=== PATIENT | female | born 1950 | race Caucasian/White ===

== ENCOUNTER 2020-11-09 15:02 | Inpatient (IN) ==
--- NOTE | 2020-11-09 15:44 | Emergency Department Note ---
History of Present Illness General Chief complaint: Illness Stated complaint: UNABLE TO SWOLLOW PILLS Time Seen by Provider: 11/09/20 15:19 Source: family Mode of arrival: wheelchair Limitations: altered mental status History of Present Illness Provider complaint: concern for poor intake and aspiration This is a 70-year-old female who lives with family brought in by them due to multiple concerns. They state patient has had a significant decline over the last several months. Now will no longer communicate or even look towards family. Patient having increased difficulty swallowing and did have an outpatient swallow study done by ENT. They have referred her for a follow-up study this coming week as well as made a referral to neurology for possible evaluation of Parkinson's. Family states over the last week and worse in the last 3 days it sounds as though she has increased phlegm in the back of her thro at that she can either not expectorate or swallow. She is having difficulty swallowing, holding onto pills in her mouth and then spitting them out later, and seems to occasionally gag trying to take both medication and food. Patient has had markedly decreased oral intake in the last 3 days, has now had decreased urine out and constipation for 5 days. [id number] states patient does not appear to be in any pain, has not felt warm or appeared flushed as though she had a fever. No other recent change in medications. Pt seen during a time of high acuity and national emergency pandemic while wearing PPE. Home Medications Medication Instructions Recorded Confirmed Type Lactobacillus 40-Bifidobact 1 cap PO DAILYBB 11/09/20 11/09/20 History 3-S.thermophilus 100 billion cell capsule (Probiotic) atorvastatin 10 mg tablet (Lipitor) 10 mg PO HS 11/09/20 11/09/20 History clopidogrel 75 mg tablet (Plavix) 75 mg PO QAM 11/09/20 11/09/20 History donepezil 5 mg tablet (Aricept) 10 mg PO QAM 11/09/20 11/09/20 History duloxetine 20 mg capsule,delayed 20 mg PO HS 11/09/20 11/09/20 History release (Cymbalta) insulin glargine 100 unit/mL (3 13 unit SUBCUT 11/09/20 11/09/20 History mL) subcutaneous pen (Lantus Solostar U-100 Insulin) insulin lispro 100 unit/mL 0 unit SUBCUT 11/09/20 11/09/20 History subcutaneous pen (Humalog KwikPen (U-100) Insulin) levothyroxine 50 mcg tablet 50 mcg PO DAILYBB 11/09/20 11/09/20 History (Synthroid) lisinopril 5 mg tablet (Zestril) 5 mg PO QAM 11/09/20 11/09/20 History metformin 1,000 mg tablet 1,000 mg PO BID 11/09/20 11/09/20 History metoprolol tartrate 50 mg tablet 50 mg PO BID 11/09/20 11/09/20 History (Lopressor) apotlupcxfju-eejuanxl-jftzmn 1 tab PO QAM 11/09/20 11/09/20 History tablet (Multivitamin 50 Plus) nystatin 100,000 unit/gram topical 1 applic TOPICAL DAILY PRN 11/09/20 11/09/20 History powder (Nystop) pantoprazole 40 mg tablet,delayed 40 mg PO DAILYBB 11/09/20 11/09/20 History release (Protonix) warfarin 4 mg tablet (Jantoven) 4 mg PO 4XWK 11/09/20 11/09/20 History warfarin 5 mg tablet (Jantoven) 2.5 mg PO 3XWK 11/09/20 11/09/20 History Allergies Allergy/AdvReac Type Severity Reaction Status Date / Time No Known Drug Allergies Allergy Verified 11/09/20 15:48 Past Med/Surg History Medical History (Updated 11/11/20 @ 23:03 by Emily Ramos DO) Dementia Depression Diabetes GERD (gastroesophageal reflux disease) Hyperlipidemia Hypertension Hypothyroid Peripheral vascular disease VTE (venous thromboembolism) Surgical History History of hip surgery Family History Other Unknown family medical history Social History (Updated 11/09/20 @ 20:32 by Brisa Kemp DO) Smoking Status: Unknown if ever smoked Tobacco Type: Cigarettes packs per day: 2; Years Smoked: 30; Hx Alcohol Use: No Hx Substance Use: No Communication Ability: Unable Current Living Situation: Family current occupational status: disabled Feels Safe at Home: Yes Assistive Devices: None Review of Systems See HPI for pertinent positives & negatives. Unobtainable due to cognitive status Physical Exam Vital Signs Vital Signs - 24 hr 11/09/20 15:06 11/09/20 17:53 11/09/20 21:14 Temperature 36.8 C Temperature Source Temporal Artery Scan Pulse Rate 92 H Pulse Rate [Radial] 79 76 Pulse Rhythm Regular Pulse Strength Normal Respiratory Rate 18 18 18 Respiratory Effort / Characteristics Non-Labored Spontaneous Respiratory Depth Normal Blood Pressure 147/83 H Blood Pressure [Right Arm] 121/87 144/101 H Blood Pressure Mean 104 Blood Pressure Mean [Right Arm] 98 115 Pulse Oximetry 98 96 95 Oxygen Delivery Method Room Air Room Air Room Air Sepsis Recent Fever Within 48 Hours No Sepsis New/Unexplained Change in Mental Status No Sepsis Action Taken by Nursing No Action Required GENERAL: Eyes open, looking down, unwell appearing, well nourished, no distress, non-toxic EYE EXAM: normal conjunctiva, PERRL and EOM's grossly intact OROPHARYNX: no exudate, no erythema, lips, buccal mucosa, and tongue normal and mucous membranes are moist NECK: supple, no nuchal rigidity, no adenopathy, non-tender LUNGS: Clear to auscultation. Normal chest wall mechanics, no w/r/r, slightly decreased at right base compared to left HEART: no murmurs, S1 normal and S2 normal ABDOMEN: abdomen soft, non-tender, normo-active bowel sounds, no masses, no rebound or guarding. BACK: Back is symmetrical on inspection and there is no deformity, no midline tenderness, no CVA tenderness. SKIN: no rashes and no bruising UPPER EXTREMITIES: upper extremities are grossly normal. FROM, nml pulses b/l. LOWER EXTREMITIES: No pitting edema. FROM, nml pulses b/l. NEURO EXAM: Patient nonverbal, would not follow commands, slight resting tremor noted in the upper extremities Course Course 1830: Family updated at bedside. They verbalized understanding of results. Administered Medications Cyanocobalamin (Cyanocobalamin 1000 Mcg/Ml Vial) 1,000 mcg IM DAILY FREEMAN Stop: 11/13/20 09:01 Last Admin: 11/11/20 21:42 Dose: 1,000 mcg Documented by: [id number] Donepezil HCl (Donepezil Hcl 10 Mg Tab) 10 mg PO QAM FREEMAN Stop: 12/10/20 08:59 Last Admin: 11/11/20 08:16 Dose: Not Given Documented by: [id number] Admin: 11/10/20 09:01 Dose: Not Given Documented by: [id number] Ceftriaxone Sodium 1,000 mg/ (Dextrose) 50 mls @ 100 mls/hr IV Q24H FREEMAN; Protocol Stop: 11/15/20 18:59 Last Infusion: 11/11/20 19:02 Dose: 0 mls/hr Documented by: [id number] Admin: 11/11/20 17:48 Dose: 100 mls/hr Documented by: [id number] Infusion: 11/10/20 19:00 Dose: 0 mls/hr Documented by: [id number] Admin: 11/10/20 18:01 Dose: 100 mls/hr Documented by: [id number] Famotidine 20 mg/ Syringe 5 mls @ 2.5 mls/min IV DAILY FREEMAN Stop: 12/10/20 08:59 Last Admin: 11/11/20 08:16 Dose: 2.5 mls/min Documented by: [id number] Admin: 11/10/20 09:01 Dose: 2.5 mls/min Documented by: [id number] Lactated Ringer's (Lr) 1,000 mls @ 50 mls/hr IV .Q20H FREEMAN Stop: 12/10/20 14:59 Last Infusion: 11/11/20 11:40 Dose: 50 mls/hr Documented by: [id number] Admin: 11/11/20 05:58 Dose: 70 mls/hr Documented by: [id number] Infusion: 11/11/20 05:58 Dose: 70 mls/hr Documented by: [id number] Admin: 11/10/20 18:01 Dose: 70 mls/hr Documented by: [id number] Insulin Aspart (Insulin Aspart 100 Units/Ml 3 Ml Pen) 0 units SC Q6 FREEMAN Stop: 12/10/20 00:00 Last Admin: 11/11/20 17:35 Dose: Not Given Documented by: [id number] Admin: 11/11/20 13:11 Dose: 3 units Documented by: [id number] Cosigned by: [id number] Admin: 11/11/20 06:16 Dose: 1 units Documented by: [id number] Cosigned by: [id number] Admin: 11/11/20 00:09 Dose: 1 units Documented by: [id number] Cosigned by: [id number] Admin: 11/10/20 18:02 Dose: 2 units Documented by: [id number] Cosigned by: [id number] Admin: 11/10/20 12:44 Dose: 1 units Documented by: [id number] Cosigned by: [id number] Admin: 11/10/20 06:19 Dose: Not Given Documented by: [id number] Cosigned by: [id number] Admin: 11/09/20 23:52 Dose: 3 units Documented by: [id number] Cosigned by: [id number] Insulin Glargine (Insulin Glargine Solostar 100 Units/Ml 3 Ml Pen) 7 units SC HS FREEMAN Stop: 12/09/20 23:14 Last Admin: 11/11/20 21:56 Dose: 7 units Documented by: [id number] Cosigned by: [id number] Admin: 11/10/20 21:28 Dose: 7 units Documented by: [id number] Cosigned by: [id number] Admin: 11/09/20 23:52 Dose: 7 units Documented by: [id number] Cosigned by: [id number] Discontinued Medications Bisacodyl (Bisacodyl 10 Mg Supp) 10 mg FL NOW STA Stop: 11/09/20 20:37 Last Admin: 11/09/20 21:46 Dose: 10 mg Documented by: [id number] Enoxaparin Sodium (Enoxaparin Inj 60 Mg/0.6 Ml Syr) 60 mg SQ NOW STA Stop: 11/10/20 00:00 Last Admin: 11/10/20 00:21 Dose: 60 mg Documented by: [id number] Gadobutrol (Gadobutrol 65ml Vial) 5 ml IV ONCE ONE Stop: 11/11/20 20:56 Last Admin: 11/11/20 20:56 Dose: 5 ml Documented by: [id number] Sodium Chloride (Nss 1000ml) 1,000 mls @ 125 mls/hr IV .Q8H FREEMAN Stop: 12/09/20 15:44 Last Infusion: 11/09/20 23:42 Dose: 0 mls/hr Documented by: [id number] Admin: 11/09/20 16:02 Dose: 125 mls/hr Documented by: [id number] Magnesium Sulfate/Dextrose (Magnesium Sulfate / D5w) 1 gm in 100 mls @ 100 mls/hr IV Q1H FREEMAN Stop: 11/09/20 19:28 Last Infusion: 11/09/20 23:42 Dose: 0 mls/hr Documented by: [id number] Admin: 11/09/20 19:11 Dose: 100 mls/hr Documented by: [id number] Infusion: 11/09/20 18:46 Dose: 100 mls/hr Documented by: [id number] Admin: 11/09/20 17:46 Dose: 100 mls/hr Documented by: [id number] Ceftriaxone Sodium (Rocephin) 1,000 mg in 50 mls @ 100 mls/hr IV NOW STA Stop: 11/09/20 18:38 Last Infusion: 11/09/20 19:11 Dose: 0 mls/hr Documented by: [id number] Admin: 11/09/20 18:40 Dose: 100 mls/hr Documented by: [id number] Magnesium Sulfate/Dextrose (Magnesium Sulfate / D5w) 1 gm in 100 mls @ 50 mls/hr IV Q2H STA Stop: 11/09/20 22:14 Last Infusion: 11/09/20 23:42 Dose: 0 mls/hr Documented by: [id number] Admin: 11/09/20 20:36 Dose: 50 mls/hr Documented by: [id number] Potassium Chloride 20 meq/ (Lactated Ringer's) 1,010 mls @ 100 mls/hr IV .Q10H6M FREEMAN Stop: 11/10/20 09:20 Last Infusion: 11/10/20 10:20 Dose: 0 mls/hr Documented by: [id number] Infusion: 11/10/20 10:20 Dose: 0 mls/hr Documented by: [id number] Admin: 11/09/20 23:55 Dose: 100 mls/hr Documented by: [id number] Magnesium Sulfate/Dextrose (Magnesium Sulfate / D5w) 1 gm in 100 mls @ 50 mls/hr IV Q2H FREEMAN Stop: 11/10/20 17:05 Last Infusion: 11/10/20 18:11 Dose: 0 mls/hr Documented by: [id number] Admin: 11/10/20 15:59 Dose: 50 mls/hr Documented by: [id number] Infusion: 11/10/20 15:40 Dose: 50 mls/hr Documented by: [id number] Admin: 11/10/20 13:40 Dose: 50 mls/hr Documented by: [id number] Infusion: 11/10/20 13:36 Dose: 50 mls/hr Documented by: [id number] Admin: 11/10/20 11:36 Dose: 50 mls/hr Documented by: [id number] Potassium Chloride (K Adriano / Wtr) 10 meq in 100 mls @ 100 mls/hr IV Q1H FREEMAN Stop: 11/10/20 15:05 Last Infusion: 11/10/20 15:59 Dose: 0 mls/hr Documented by: [id number] Admin: 11/10/20 14:49 Dose: 100 mls/hr Documented by: [id number] Infusion: 11/10/20 14:43 Dose: 100 mls/hr Documented by: [id number] Admin: 11/10/20 13:43 Dose: 100 mls/hr Documented by: [id number] Infusion: 11/10/20 13:41 Dose: 100 mls/hr Documented by: [id number] Admin: 11/10/20 12:41 Dose: 100 mls/hr Documented by: [id number] Infusion: 11/10/20 12:36 Dose: 100 mls/hr Documented by: [id number] Admin: 11/10/20 11:36 Dose: 100 mls/hr Documented by: [id number] Magnesium Sulfate/Dextrose (Magnesium Sulfate / D5w) 1 gm in 100 mls @ 50 mls /hr IV Q2H FREEMAN Stop: 11/11/20 15:29 Last Infusion: 11/11/20 15:24 Dose: 0 mls/hr Documented by: [id number] Admin: 11/11/20 13:13 Dose: 50 mls/hr Documented by: [id number] Infusion: 11/11/20 13:13 Dose: 50 mls/hr Documented by: [id number] Admin: 11/11/20 11:40 Dose: 50 mls/hr Documented by: [id number] Potassium Phosphate 21 mmol/ (Sodium Chloride) 507 mls @ 145 mls/hr IV 1130 ONE Stop: 11/11/20 14:59 Last Infusion: 11/11/20 15:25 Dose: 0 mls/hr Documented by: [id number] Admin: 11/11/20 11:47 Dose: 145 mls/hr Documented by: [id number] Iron Sucrose 300 mg/ Sodium (Chloride) 265 mls @ 176.667 mls/hr IV 2000 ONE Stop: 11/11/20 21:29 Last Admin: 11/11/20 21:42 Dose: 176.7 mls/hr Documented by: [id number] Thiamine HCl 200 mg/ Sodium (Chloride) 52 mls @ 208 mls/hr IV ONE ONE Stop: 11/11/20 20:14 Last Infusion: 11/11/20 22:14 Dose: 0 mls/hr Documented by: [id number] Admin: 11/11/20 21:42 Dose: 208 mls/hr Documented by: [id number] Insulin Aspart (Insulin Aspart 100 Units/Ml 3 Ml Pen) 0 units SC ACHS FREEMAN Stop: 12/09/20 23:14 Last Admin: 11/10/20 00:15 Dose: Not Given Documented by: [id number] Cosigned by: [id number] Ioversol (Optiray 320 100ml) 94 ml IV ONCE ONE Stop: 11/09/20 18:14 Last Admin: 11/09/20 18:13 Dose: 1 ml Documented by: [id number] Miscellaneous (Patient's Height And/Or Weight Needed) 1 ea N/A Q30M FREEMAN Stop: 12/09/20 23:14 Last Admin: 11/10/20 00:22 Dose: Not Given Documented by: [id number] Admin: 11/09/20 23:55 Dose: 1 ea Documented by: [id number] Potassium Chloride (Potassium Chloride Crtab 20 Meq Tabcr) 20 meq PO NOW STA Stop: 11/09/20 20:16 Last Admin: 11/09/20 20:40 Dose: Not Given Documented by: [id number] Medical Decision Making Differential Diagnosis Differential diagnoses includes but is not limited to toxic, metabolic, infectious, traumatic, cardiac, neurologic, hematologic, psychiatric and inflammatory etiologies. Medical Records Attestation: I reviewed the patient's medical records. Home Medications Current Medication List: was personally reviewed by me Laboratory Data Attestation: I reviewed the patient's lab results. Result diagrams: 11/11/20 07:40 11/11/20 07:40 Lab Results 11/09/20 11/09/20 11/09/20 Range/Units 15:57 15:57 15:57 WBC 11.06 H (4.8-10.8) K/uL RBC 4.25 (4.2-5.4) M/uL Hgb 11.9 L (12.0-16.0) g/dL Hct 36.7 L (37-47) % MCV 86.4 (80-100) fL MCH 28.0 (25-34) pg MCHC 32.4 (32-36) g/dL RDW Std Deviation 49.9 H (36.4-46.3) fL RDW Coeff of [place] 15.8 H (11.5-14.5) % Plt Count 214 (130-400) K/uL MPV 10.7 H (7.4-10.4) fL Immature Gran % (Auto) 0.3 % Neut % (Auto) 75.7 % Lymph % (Auto) 14.9 % [place] % (Auto) 8.2 % Eos % (Auto) 0.7 % Baso % (Auto) 0.2 % Neut # (Auto) 8.37 H (1.4-6.5) K/uL Lymph # (Auto) 1.65 (1.2-3.4) K/uL [place] # (Auto) 0.91 H (0.11-0.59) K/uL Eos # (Auto) 0.08 (0-0.5) K/uL Baso # (Auto) 0.02 (0-0.2) K/uL Immature Gran # (Auto) 0.03 H (0.00-0.02) K/uL PT 30.1 H (9.0-12.0) Seconds INR 3.3 H (0.9-1.1) Sodium 137 (136-145) mmol/L Potassium 3.2 L (3.5-5.1) mmol/L Chloride 103 (98-107) mmol/L Carbon Dioxide 26 (21-32) mmol/L Anion Gap 8.0 (3-11) BUN 17 (7-18) mg/dl Creatinine 0.94 (0.6-1.2) mg/dl Est Cr Clr Drug Dosing Not Reportable Est GFR ( Amer) 70.2 ml/min Est GFR (Non-Af Amer) 60.6 ml/min BUN/Creatinine Ratio 18.3 (10-20) Glucose 224 H (70-99) mg/dl Calcium 9.5 (8.5-10.1) mg/dl Phosphorus 2.3 L (2.5-4.9) mg/dl Magnesium 0.7 L* (1.8-2.4) mg/dl Total Bilirubin 0.7 (0.2-1) mg/dl AST 14 L (15-37) U/L ALT 11 L (12-78) U/L Alkaline Phosphatase 65 (45-117) U/L Troponin I < 0.015 (0-0.045) ng/ml NT-Pro-B Natriuret Pep 97 (0-900) pg/ml Total Protein 6.7 (6.4-8.2) gm/dl Albumin 3.3 L (3.4-5.0) gm/dl Globulin 3.4 (2.5-4.0) gm/dl Albumin/Globulin Ratio 1.0 (0.9-2) Lipase 111 (73-393) U/L TSH 1.290 (0.300-4.500) uIu/ml Urine Color Urine Appearance (Clear) Urine pH (4.5-7.5) Ur Specific [place] (1.000-1.030) Urine Protein (Negative) Urine Glucose (UA) (Negative) Urine Ketones (Negative) Urine Blood (Negative) Urine Nitrite (Negative) Urine Bilirubin (Negative) Urine Urobilinogen (Negative) Ur Leukocyte Esterase (Negative) Urine WBC (Auto) (0-5) /hpf Urine RBC (Auto) (0-4) /hpf U Hyaline Cast (Auto) (0-5) /lpf U Epithel Cells (Auto) (0-5) /lpf Urine Bacteria (Auto) (Negative) Urine Crystals Other Crystals (None Prsent) Urine Yeast COVID-19 Eval Order SARS-CoV-2 (PCR) (Negative) 11/09/20 11/09/20 11/09/20 Range/Units 16:11 19:17 19:17 WBC (4.8-10.8) K/uL RBC (4.2-5.4) M/uL Hgb (12.0-16.0) g/dL Hct (37-47) % MCV (80-100) fL MCH (25-34) pg MCHC (32-36) g/dL RDW Std Deviation (36.4-46.3) fL RDW Coeff of [place] (11.5-14.5) % Plt Count (130-400) K/uL MPV (7.4-10.4) fL Immature Gran % (Auto) % Neut % (Auto) % Lymph % (Auto) % [place] % (Auto) % Eos % (Auto) % Baso % (Auto) % Neut # (Auto) (1.4-6.5) K/uL Lymph # (Auto) (1.2-3.4) K/uL [place] # (Auto) (0.11-0.59) K/uL Eos # (Auto) (0-0.5) K/uL Baso # (Auto) (0-0.2) K/uL Immature Gran # (Auto) (0.00-0.02) K/uL PT (9.0-12.0) Seconds INR (0.9-1.1) Sodium (136-145) mmol/L Potassium (3.5-5.1) mmol/L Chloride (98-107) mmol/L Carbon Dioxide (21-32) mmol/L Anion Gap (3-11) BUN (7-18) mg/dl Creatinine (0.6-1.2) mg/dl Est Cr Clr Drug Dosing Est GFR ( Amer) ml/min Est GFR (Non-Af Amer) ml/min BUN/Creatinine Ratio (10-20) Glucose (70-99) mg/dl Calcium (8.5-10.1) mg/dl Phosphorus (2.5-4.9) mg/dl Magnesium (1.8-2.4) mg/dl Total Bilirubin (0.2-1) mg/dl AST (15-37) U/L ALT (12-78) U/L Alkaline Phosphatase (45-117) U/L Troponin I (0-0.045) ng/ml NT-Pro-B Natriuret Pep (0-900) pg/ml Total Protein (6.4-8.2) gm/dl Albumin (3.4-5.0) gm/dl Globulin (2.5-4.0) gm/dl Albumin/Globulin Ratio (0.9-2) Lipase (73-393) U/L TSH (0.300-4.500) uIu/ml Urine Color Dark Yellow Urine Appearance Turbid A (Clear) Urine pH 8.5 H (4.5-7.5) Ur Specific [place] 1.021 (1.000-1.030) Urine Protein 1+ H (Negative) Urine Glucose (UA) Negative (Negative) Urine Ketones Trace H (Negative) Urine Blood Negative (Negative) Urine Nitrite Negative (Negative) Urine Bilirubin Negative (Negative) Urine Urobilinogen Negative (Negative) Ur Leukocyte Esterase 2+ H (Negative) Urine WBC (Auto) >30 H (0-5) /hpf Urine RBC (Auto) 0-4 (0-4) /hpf U Hyaline Cast (Auto) 1-5 (0-5) /lpf U Epithel Cells (Auto) >30 H (0-5) /lpf Urine Bacteria (Auto) 4+ H (Negative) Urine Crystals Not Reportable Other Crystals [place]c (None Prsent) Urine Yeast Not Reportable COVID-19 Eval Order Covid19 at [facility] SARS-CoV-2 (PCR) NEGATIVE (Negative) Imaging Data Radiologist's Impression: Head CT 11/09/20 15:38 CT head/brain wo con CLINICAL HISTORY: ams COMPARISON STUDY: No previous studies for comparison. TECHNIQUE: Axial CT of the brain is performed from the vertex to the skull base. IV contrast was not administered for this examination. A dose lowering technique was utilized adhering to the principles of ALARA. CT DOSE: 746.71 mGy.cm FINDINGS: No intra or extra-axial mass lesions are visualized. There is no CT evidence of acute cortical infarction. There is no evidence of midline shift. There is no acute hemorrhage. No acute depressed calvarial fractures are visualized. There are patchy white matter hypodensities likely on a small vessel basis. Atrophic changes of brain parenchyma are seen and associated with ex vacuo dilatation of ventricles. There is no evidence of acute sinusitis IMPRESSION: 1. No acute intracranial hemorrhage, no midline shift or space occupying lesions. 2. Chronic small vessel ischemia. 3. Atrophic changes of brain parenchyma associated with ex vacuo dilatation of ventricles. ACT 112: Negative or not required by law. The above report was generated using voice recognition software. It may contain grammatical, syntax or spelling errors. Electronically signed by: Connie Guaman DO 11/09/2020 4:50 PM KUB X-Ray 11/09/20 15:38 XR KUB/Abdomen 1 view CLINICAL HISTORY: constipation COMPARISON STUDY: No previous studies for comparison. FINDINGS: Nondilated stool and gas filled loops of bowel are seen. Moderate amount of stool is seen within left hemiabdomen. Cholecystectomy clips, degenerative changes of the spine and orthopedic hardware within left hip joint are seen. Also osseous structures are diffusely demineralized. Slightly rotated right femoral head is seen. IMPRESSION: 1. Nonobstructive bowel gas pattern. ACT 112: Negative or not required by law. The above report was generated using voice recognition software. It may contain grammatical, syntax or spelling errors. Electronically signed by: Connie Guaman DO 11/09/2020 5:09 PM Chest X-Ray 11/09/20 15:39 XR chest 1V portable CLINICAL HISTORY: ?aspiration COMPARISON STUDY: No previous studies for comparison. FINDINGS: No pneumothorax. No pleural effusion. No large infiltrates or consolidative lesions are seen. Cardiomediastinal silhouette is within normal limits in size. No significant pulmonary vascular congestion.. Aorta is calcified Osseous structures: Severe degenerative changes of the left shoulder. Mild thoracolumbar scoliosis. IMPRESSION: 1. No acute pulmonary process. ACT 112: Negative or not required by law. The above report was generated using voice recognition software. It may contain grammatical, syntax or spelling errors. Electronically signed by: Connie Guaman DO 11/09/2020 5:10 PM Abdomen/Pelvis CT 11/09/20 18:10 CT abd pelvis IV con only CLINICAL HISTORY: uti, ams COMPARISON STUDY: None. TECHNIQUE: A dose lowering technique was utilized adhering to the principles of ALARA. CT DOSE: 301.14 mGy.cm FINDINGS: Lower chest: Limited evaluation of lung bases shows no evidence of acute a bnormalities.. Liver: The contrast-enhanced liver is normal in size, contour, and attenuation. There is no intrahepatic biliary ductal dilatation. The hepatic veins and portal veins are patent. Gallbladder: Is surgically absent. Spleen: Normal in size and attenuation. Pancreas: Is atrophic. 4.4 x 3.6 cm cyst is seen with adjacent to pancreatic tail (3/115). Diffuse prominence of pancreatic duct is seen. Adrenal glands: Unremarkable. Kidneys: No hydronephrosis or nephrolithiasis is seen. Cortical scarring is seen within left kidney, otherwise there is diffuse homogeneous cortical enhancement. Pelvic viscera: Urinary bladder is fluid-filled. Uterus is surgically absent. Bowel: Bowel loops are nondilated. Duodenal diverticulum is seen. Appendix is not well visualized. Significant amount of stool is seen within lower pelvic region which could represents fecal impaction. Minimal fat stranding surrounding cecum is seen. Peritoneum: There is no intraperitoneal free air or abdominal ascites. Vasculature: Abdominal aorta is nondilated. Heavy concentric calcifications are seen within distal aspect of abdominal aorta. Adenopathy: None Skeletal structures: Osteopenia. Multilevel degenerative changes of the spine. Orthopedic hardware is seen within left hip. IMPRESSION: 1. Fecal impaction. 2. Nondilated loops of bowel. Questionable minimal fat stranding is seen surrounding cecum which might represent inflammatory process/colitis. 3. Atrophic pancreas with large pancreatic cyst. Please correlate this findings with prior history of pancreatic abnormalities. Further GI evaluation and possible MRI of the abdomen on nonemergency basis might be considered. 4. Status post cholecystectomy and hysterectomy. 5. Atherosclerosis. 6. The rest of findings as above ACT 112: Negative or not required by law. The above report was generated using voice recognition software. It may contain grammatical, syntax or spelling errors. Electronically signed by: Connie Guaman DO 11/09/2020 8:19 PM ECG Data Attestation: I personally reviewed and interpreted this ECG as follows: Indication: + altered mental status Rate (beats per minute): 78 Rhythm: + normal sinus ECG Intervals/blocks: + Normal QRS and + Normal QT ECG [place]: + Normal ECG ST segments: + Normal ST segments MDM Narrative This is a 70 yo female brought in by family due to concern for decreased intake, inability to take her medications, decline in her alertness, and concern for dehydration. VS stable. No ectopy or dysrhythmia. Initial cxr without evidence of aspiration. Patient started on gentle IVF rehydration. Cath UA obtained and suggestive of UTI. Patient found to have significant hypomagnes emia in addition. DIscussed all results with family at bedside. Possible that UTI led to dehydration and poor po intake which worsened her electrolyte dysfunction. Pt started on IV antibiotics. Case discussed with the hospitalist. CT a/p added to r/o pyelo or obstructive process given AMS. CT head without acute process to otherwise contribute to cognitive decline. An order was placed for continuous cardiac monitoring. The monitor shows a rate of _96__ with __normal sinus__ rhythm. Impression & Plan AMS (altered mental status), UTI (urinary tract infection), Hypomagnesemia, Declining functional status, Hypokalemia Discharge Plan Visit Data Chief Complaint: Illness Stated Complaint: UNABLE TO SWOLLOW PILLS ED Provider: Pheasant,Emily S. Discharge Problem: AMS (altered mental status), UTI (urinary tract infection), Hypomagnesemia, Declining functional status, Hypokalemia Patient Disposition: Admitted As Inpatient Discharge Instructions Interventions: ED Discharge Assessment Last Done: 11/09/20 22:11 Discharge Problem: AMS (altered mental status) Qualifiers: Altered mental status type: unspecified Qualified Code(s): R41.82 - Altered mental status, unspecified UTI (urinary tract infection) Qualifiers: Urinary tract infection type: acute cystitis Hematuria presence: without hematuria Qualified Code(s): N30.00 - Acute cystitis without hematuria
[2020-11-09] MEDS ORDERED: SODIUM CHLORIDE 0.9% 1000ML 1,000 ML IV SCH (15:45)
[2020-11-09 16:11] LABS: Basophils # (auto) 0.02 K/uL (0-0.2); Basophils % (auto) 0.2 %; Eosinophils # (auto) 0.08 K/uL (0-0.5); Eosinophils % (auto) 0.7 %; Hematocrit (blood only) 36.7 % (37-47); Hemoglobin 11.9 g/dL (12.0-16.0); Immature Granulocytes # (auto) 0.03 K/uL (0.00-0.02); Immature Granulocytes % (auto) 0.3 %; Lymphocytes # (auto) 1.65 K/uL (1.2-3.4); Lymphocytes % (auto) 14.9 %; Mean Corpuscular Hgb Conc 32.4 g/dL (32-36); Mean Corpuscular Volume 86.4 fL (80-100); Mean Platelet Volume 10.7 fL (7.4-10.4); Monocytes # (auto) 0.91 K/uL (0.11-0.59); Monocytes % (auto) 8.2 %; Neutrophils # (auto) 8.37 K/uL (1.4-6.5); Neutrophils % (auto) 75.7 %; Platelet Count 214 K/uL (130-400); RDW Coefficient of Variation 15.8 % (11.5-14.5); RDW Standard Deviation 49.9 fL (36.4-46.3); Red Blood Count 4.25 M/uL (4.2-5.4); White Blood Count 11.06 K/uL (4.8-10.8)
[2020-11-09 16:20] LABS: INR 3.3 (0.9-1.1); Prothrombin Time 30.1 Seconds (9.0-12.0)
[2020-11-09 16:45] LABS: Appearance Urine Turbid (Clear); Bacteria Urine Automated 4+ (Negative); Bilirubin Urine Negative (Negative); Blood Urine Negative (Negative); Color Urine Dark Yellow; Epithelial Cell Urine Auto >30 /lpf (0-5); Glucose Urine UA Negative (Negative); Ketones Urine Trace (Negative); Leukocyte Esterase Urine 2+ (Negative); Nitrite Urine Negative (Negative); Specific Gravity Urine 1.021 (1.000-1.030); Urobilinogen Urine Negative (Negative); WBC Urine Automated >30 /hpf (0-5); pH Urine 8.5 (4.5-7.5)
[2020-11-09 16:47] LABS: Protein Urine 1+ (Negative)
--- NOTE | 2020-11-09 16:51 | CT Scan Report ---
CT head/brain wo con CLINICAL HISTORY: ams COMPARISON STUDY: No previous studies for comparison. TECHNIQUE: Axial CT of the brain is performed from the vertex to the skull base. IV contrast was not administered for this examination. A dose lowering technique was utilized adhering to the principles of ALARA. CT DOSE: 746.71 mGy.cm FINDINGS: No intra or extra-axial mass lesions are visualized. There is no CT evidence of acute cortical infarc tion. There is no evidence of midline shift. There is no acute hemorrhage. No acute depressed calvar ial fractures are visualized. There are patchy white matter hypodensities likely on a small vessel basis. Atrophic changes of brain parenchyma are seen and associated with ex vacuo dilatation of ventricles. There is no evidence of acute sinusitis IMPRESSION: 1. No acute intracranial hemorrhage, no midline shift or space occupying lesions. 2. Chronic small vessel ischemia. 3. Atrophic changes of brain parenchyma associated with ex vacuo dilatation of ventricles. ACT 112: Negative or not required by law. The above report was generated using voice recognition software. It may contain grammatical, syntax o r spelling errors. Electronically signed by: Connie Guaman DO 11/09/2020 4:50 PM
[2020-11-09 16:59] LABS: RBC Urine Automated 0-4 /hpf (0-4)
[2020-11-09 17:04] LABS: Alanine Aminotransferase 11 U/L (12-78); Albumin Level 3.3 gm/dl (3.4-5.0); Alkaline Phosphatase 65 U/L (45-117); Aspartate Aminotransferase 14 U/L (15-37); BUN Creatinine Ratio 18.3 (10-20); Bilirubin,Total 0.7 mg/dl (0.2-1); Blood Urea Nitrogen 17 mg/dl (7-18); Calcium 9.5 mg/dl (8.5-10.1); Carbon Dioxide 26 mmol/L (21-32); Chloride 103 mmol/L (98-107); Est GFR (African American) 70.2 ml/min; Est GFR (Non-African American) 60.6 ml/min; Globulin 3.4 gm/dl (2.5-4.0); Glucose 224 mg/dl (70-99); Lipase 111 U/L (73-393); Magnesium 0.7 mg/dl (1.8-2.4); NT Pro B Type Natriuretic Pept 97 pg/ml (0-900); Potassium 3.2 mmol/L (3.5-5.1); Sodium 137 mmol/L (136-145); Total Protein 6.7 gm/dl (6.4-8.2); Troponin I < 0.015 ng/ml (0-0.045)
--- NOTE | 2020-11-09 17:10 | XRay Report ---
XR KUB/Abdomen 1 view CLINICAL HISTORY: constipation COMPARISON STUDY: No previous studies for comparison. FINDINGS: Nondilated stool and gas filled loops of bowel are seen. Moderate amount of stool is seen within left hemiabdomen. Cholecystectomy clips, degenerative changes of the spine and orthopedic hardware within left hip join t are seen. Also osseous structures are diffusely demineralized. Slightly rotated right femoral head is seen. IMPRESSION: 1. Nonobstructive bowel gas pattern. ACT 112: Negative or not required by law. The above report was generated using voice recognition software. It may contain grammatical, syntax o r spelling errors. Electronically signed by: Connie Guaman DO 11/09/2020 5:09 PM
--- NOTE | 2020-11-09 17:11 | XRay Report ---
XR chest 1V portable CLINICAL HISTORY: ?aspiration COMPARISON STUDY: No previous studies for comparison. FINDINGS: No pneumothorax. No pleural effusion. No large infiltrates or consolidative lesions are seen. Cardiomediastinal silhouette is within normal limits in size. No significant pulmonary vascular congestion.. Aorta is calcified Osseous structures: Severe degenerative changes of the left shoulder. Mild thoracolumbar scoliosis. IMPRESSION: 1. No acute pulmonary process. ACT 112: Negative or not required by law. The above report was generated using voice recognition software. It may contain grammatical, syntax o r spelling errors. Electronically signed by: Connie Guaman DO 11/09/2020 5:10 PM
[2020-11-09] MEDS: MAGNESIUM SULFATE / D5W 1 GM/100 ML BAG IV SCH ×2 (17:46→19:11)
[2020-11-09] MEDS ORDERED: cefTRIAXone SODIUM 1,000 MG/50 ML BAG IV STA (18:09)
[2020-11-09] MEDS ORDERED: OPTIRAY 320 100ml IV ONE (18:13)
[2020-11-09] MEDS ORDERED: POTASSIUM CHLORIDE CRTAB 20 MEQ TABCR PO STA (20:15)
[2020-11-09] MEDS ORDERED: MAGNESIUM SULFATE / D5W 1 GM/100 ML BAG IV STA (20:15)
--- NOTE | 2020-11-09 20:15 | History & Physical Report ---
Date of Service November 09, 2020 Assessment & Plan (1) Declining functional status: Plan: 70yo female with history of Dementia presenting from home with functional decline. Patient has been declining over the past year with rapid decline over the last 3 months and week. She is presently bed bound, nonverbal. She is eating small amounts but not taking her medications x 3 days. Cause most likely multifactorial - unfortunately may largely be due to progression of underlying dementia but also fecal impaction, UTI, hypokalemia/hypomagnesemia and dehydration may be playing a roll as well. Family is at bedside and provides care for the patient at home. They are willing to continue home care but feel that they may need some additional support equipment and possibly nursing care. -Admit to medical -Frequent orientation -Treatment of acute and chronic issues as below (2) Fecal impaction: Plan: Fecal impaction noted on CT as well as a large pancreatic cyst noted. Family states patient has not had a BM x 5 days -Soap suds enema -Dulcolax TN -IVF and electrolyte repletion (3) UTI (urinary tract infection): Plan: Patient afebrile, HD stable, non-toxic in appearance. Unable to endorse symptoms of dysuria, frequency or urgency. Patient is urinary incontinent. UA suggestive of infection. -Follow urine cultures -Ceftriaxone 1gm IV daily - patient received dose in ER (4) Hypomagnesemia: Plan: Mg = 0.7. Most likely from poor PO intake and nutritional decline -Repletion with 4gm IV -Repeat Mg level in AM (5) Pancreatic cyst: Plan: Incidental finding on imaging. Lipase is WNL. No indication of abdominal tenderness. -Consider additional imaging and GI consultation (6) Dementia: Plan: Patient with severe dementia. Question of possible Parkinson's disease given resting tremor and tongue fasciculations previously noted during ENT encounter. Patient is scheduled to see Neurology in December -Continue Aricept -Frequent orientation, delirium prevention strategies -Patient is nonverbal and is unable to use call conner -Turn q 2 hours - monitor for skin breakdown -Aspiration precautions (7) VTE (venous thromboembolism): Plan: Patient with history of VTE. She is on Coumadin with INR of 3.3. Presently unable to swallow medications. -Hold PO Coumadin -Therapeutic Lovenox (8) Peripheral vascular disease: Plan: Patient with history of peripheral vascular disease. Extremities presently warm, well perfused with palpable pulses -Hold Plavix and Atorvastatin until patient able to tolerated PO and swallow appropriately (9) Depression: Plan: Chronic -Hold Duloxetine for now until patient able to swallow (10) Hyperlipidemia: Plan: Chronic. Hold Atorvastatin for now until patient able to tolerate PO (11) Hypertension: Plan: Blood pressure adequately controlled at present -Hold Metoprolol and Lisinopril for now until patient able to take PO -Continue to monitor (12) Diabetes: Plan: Chronic. NYQ=203 at present -Lantus 7u qHS -ISS -Goal blood sugar 100 - 140 (13) GERD (gastroesophageal reflux disease): Plan: Chronic -Hold PO Protonix -Pepcid 20mg IV daily until patient can tolerate PO (14) Hypothyroid: Plan: Chronic -Hold PO Synthroid 50mcg - Will give 25mcg IV daily until patient can tolerate PO Plan: F/E/N - LR with KCl, repeat labs in AM, soft diet as tolerated with aspiration precautions. Dysphagia screening as needed Ppx - On Lovenox 1mg/kg BID for history of VTE on Coumadin Code - DNR/DNI per discussion with family Dispo - Admit to medical. PT/OT evaluation. Goal is for discharge home with additional support as needed after acute issues have been treated. History of Present Illness Chief Complaint: functional decline Primary Care Provider: DO Lynne Vasquezes is a 70yo female presenting with adult failure to thrive. Patient is nonverbal due to underlying dementia as well as infection and is unable to provide details of history. History obtained through discussion with ER team, chart review and discussion with family at bedside. Patient's daughter is a APPLIED BEHAV[employer] SCIENCE SPECIALIST with years of long term experience. She provides ongoing care for her mother at home. Patient moved from [place] to live with family due to her functional decline. Family then moved into a new home that was more equipped for the patient - wheelchair ramp, etc. Daughter states that one year ago her mother was fairly interactive and verbal and mostly continent. She was wheelchair bound and required 1-person assist with transfers. She has had fairly significant decline over the last 6 months, most notable over the last 3 months. She is now mostly non-verbal, bed bound and incontinent. Over the last week she has been having decreased oral intake. She last took her pills on 11/06/20 - since then she has been holding them in her cheeks. She had several episodes of vomiting yesterday - daughter reports the first episode was a large emesis consisting mostly of clear phlegm. She then had two smaller episodes of liquid vomit - no blood or bile reported. This AM she was able to eat breakfast but did not take her medications which is why family brought her in. Patient was seen by ENT on 10/28/20 with progressive dysphagia to solids and liquids. She had a flexible laryngoscopy performed without evidence of mass or lesion - she had normal vocal fold mobility. A pill-rolling tremor and tongue fasciculations were noted and patient was referred to Neurology to assess for possible Parkinson's Disease. A modified barium swallow was ordered and is to be performed this week on Tuesday. No additional complaints. No BM x 5 days. ER Course: Ceftriaxone, Mg x 1 gm, NSS at 125mL/hr Allergies Allergy/AdvReac Type Severity Reaction Status Date / Time No Known Drug Allergies Allergy Verified 11/09/20 15:48 Home Medications Medication Instructions Recorded Confirmed Type Lactobacillus 40-Bifidobact 1 cap PO DAILYBB 11/09/20 11/09/20 History 3-S.thermophilus 100 billion cell capsule (Probiotic) atorvastatin 10 mg tablet (Lipitor) 10 mg PO HS 11/09/20 11/09/20 History clopidogrel 75 mg tablet (Plavix) 75 mg PO QAM 11/09/20 11/09/20 History donepezil 5 mg tablet (Aricept) 10 mg PO QAM 11/09/20 11/09/20 History duloxetine 20 mg capsule,delayed 20 mg PO HS 11/09/20 11/09/20 History release (Cymbalta) insulin glargine 100 unit/mL (3 13 unit SUBCUT 11/09/20 11/09/20 History mL) subcutaneous pen (Lantus Solostar U-100 Insulin) insulin lispro 100 unit/mL 0 unit SUBCUT AC 11/09/20 11/09/20 History subcutaneous pen (Humalog KwikPen (U-100) Insulin) levothyroxine 50 mcg tablet 50 mcg PO DAILYBB 11/09/20 11/09/20 History (Synthroid) lisinopril 5 mg tablet (Zestril) 5 mg PO QAM 11/09/20 11/09/20 History metformin 1,000 mg tablet 1,000 mg PO BID 11/09/20 11/09/20 History metoprolol tartrate 50 mg tablet 50 mg PO BID 11/09/20 11/09/20 History (Lopressor) yjluigeuqjaz-wyntmhdh-ognwzm 1 tab PO QAM 11/09/20 11/09/20 History tablet (Multivitamin 50 Plus) nystatin 100,000 unit/gram topical 1 applic TOPICAL DAILY PRN 11/09/20 11/09/20 History powder (Nystop) pantoprazole 40 mg tablet,delayed 40 mg PO DAILYBB 11/09/20 11/09/20 History release (Protonix) warfarin 4 mg tablet (Jantoven) 4 mg PO 4XWK 11/09/20 11/09/20 History warfarin 5 mg tablet (Cas[place]oven) 2.5 mg PO 3XWK 11/09/20 11/09/20 History Past Med/Surg History Medical History (Updated 11/09/20 @ 20:54 by Brisa Kemp DO) Dementia Depression Diabetes GERD (gastroesophageal reflux disease) Hyperlipidemia Hypertension Hypothyroid Peripheral vascular disease VTE (venous thromboembolism) Surgical History History of hip surgery Family History Other Unknown family medical history Social History (Updated 11/09/20 @ 20:32 by Brisa Kemp DO) Smoking Status: Former smoker Tobacco Type: Cigarettes packs per day: 2; Years Smoked: 30; Hx Alcohol Use: No Hx Substance Use: No Current Living Situation: Family current occupational status: disabled Feels Safe at Home: Yes Review of Systems Review of Systems: Unobtainable due to cognitive status Physical Exam Physical Exam: General: frail female patient appearing older than stated age, non-verbal, resting comfortably, NAD Skin: warm, dry, intact, no rashes or lesions. Daughter reports pink early decub on sacrum noted today HEENT: NC/AT, PERRL, anicteric sclera, conjunctiva without injection, external ear normal to inspection and nontender, nares patent, dry mucus membranes, edentulous, no oropharyngeal lesions, neck supple, trachea midline, no LAD, no thyromegaly, no JVD Heart: +S1/S2, regular, no m/r/g Lungs: equal air entry bilaterally, no rales/rhonchi/wheezes Abd: +BS, soft, NT/ND, no masses/organomegaly/ascites Ext: warm, 2+ pulses in UE/LE bilaterally, no clubbing/cyanosis, slight edema of left hand Neuro: non-verbal, not following commands, +resting tremor noted in RUE, mild rigiditiy Results & Data Results & Data ([facility]) Vital Signs (Past 12 Hours) Vital Signs Temp Pulse Pulse Resp BP BP Pulse Ox 11/09/20 17:53 79 18 121/87 96 11/09/20 15:06 36.8 C 92 H 18 147/83 H 98 Laboratory Results Laboratory Results WBC 11.06 K/uL (4.8-10.8) H 11/09/20 15:57 RBC 4.25 M/uL (4.2-5.4) 11/09/20 15:57 Hgb 11.9 g/dL (12.0-16.0) L 11/09/20 15:57 Hct 36.7 % (37-47) L 11/09/20 15:57 MCV 86.4 fL (80-100) 11/09/20 15:57 MCH 28.0 pg (25-34) 11/09/20 15:57 MCHC 32.4 g/dL (32-36) 11/09/20 15:57 RDW Std Deviation 49.9 fL (36.4-46.3) H 11/09/20 15:57 RDW Coeff of [place] 15.8 % (11.5-14.5) H 11/09/20 15:57 Plt Count 214 K/uL (130-400) 11/09/20 15:57 MPV 10.7 fL (7.4-10.4) H 11/09/20 15:57 Immature Gran % (Auto) 0.3 % 11/09/20 15:57 Neut % (Auto) 75.7 % 11/09/20 15:57 Lymph % (Auto) 14.9 % 11/09/20 15:57 Divide % (Auto) 8.2 % 11/09/20 15:57 Eos % (Auto) 0.7 % 11/09/20 15:57 Baso % (Auto) 0.2 % 11/09/20 15:57 Neut # (Auto) 8.37 K/uL (1.4-6.5) H 11/09/20 15:57 Lymph # (Auto) 1.65 K/uL (1.2-3.4) 11/09/20 15:57 Divide # (Auto) 0.91 K/uL (0.11-0.59) H 11/09/20 15:57 Eos # (Auto) 0.08 K/uL (0-0.5) 11/09/20 15:57 Baso # (Auto) 0.02 K/uL (0-0.2) 11/09/20 15:57 Immature Gran # (Auto) 0.03 K/uL (0.00-0.02) H 11/09/20 15:57 PT 30.1 Seconds (9.0-12.0) H 11/09/20 15:57 INR 3.3 (0.9-1.1) H 11/09/20 15:57 Sodium 137 mmol/L (136-145) 11/09/20 15:57 Potassium 3.2 mmol/L (3.5-5.1) L 11/09/20 15:57 Chloride 103 mmol/L (98-107) 11/09/20 15:57 Carbon Dioxide 26 mmol/L (21-32) 11/09/20 15:57 Anion Gap 8.0 (3-11) 11/09/20 15:57 BUN 17 mg/dl (7-18) 11/09/20 15:57 Creatinine 0.94 mg/dl (0.6-1.2) 11/09/20 15:57 Est Cr Clr Drug Dosing Not Reportable 11/09/20 15:57 Est GFR ( Amer) 70.2 ml/min 11/09/20 15:57 Est GFR (Non-Af Amer) 60.6 ml/min 11/09/20 15:57 BUN/Creatinine Ratio 18.3 (10-20) 11/09/20 15:57 Glucose 224 mg/dl (70-99) H 11/09/20 15:57 Calcium 9.5 mg/dl (8.5-10.1) 11/09/20 15:57 Magnesium 0.7 mg/dl (1.8-2.4) L* 11/09/20 15:57 Total Bilirubin 0.7 mg/dl (0.2-1) 11/09/20 15:57 AST 14 U/L (15-37) L 11/09/20 15:57 ALT 11 U/L (12-78) L 11/09/20 15:57 Alkaline Phosphatase 65 U/L (45-117) 11/09/20 15:57 Troponin I < 0.015 ng/ml (0-0.045) 11/09/20 15:57 NT-Pro-B Natriuret Pep 97 pg/ml (0-900) 11/09/20 15:57 Total Protein 6.7 gm/dl (6.4-8.2) 11/09/20 15:57 Albumin 3.3 gm/dl (3.4-5.0) L 11/09/20 15:57 Globulin 3.4 gm/dl (2.5-4.0) 11/09/20 15:57 Albumin/Globulin Ratio 1.0 (0.9-2) 11/09/20 15:57 Lipase 111 U/L (73-393) 11/09/20 15:57 TSH 1.290 uIu/ml (0.300-4.500) 11/09/20 15:57 Urine Color Dark Yellow 11/09/20 16:11 Urine Appearance Turbid (Clear) A 11/09/20 16:11 Urine pH 8.5 (4.5-7.5) H 11/09/20 16:11 Ur Specific [place] 1.021 (1.000-1.030) 11/09/20 16:11 Urine Protein 1+ (Negative) H 11/09/20 16:11 Urine Glucose (UA) Negative (Negative) 11/09/20 16:11 Urine Ketones Trace (Negative) H 11/09/20 16:11 Urine Blood Negative (Negative) 11/09/20 16:11 Urine Nitrite Negative (Negative) 11/09/20 16:11 Urine Bilirubin Negative (Negative) 11/09/20 16:11 Urine Urobilinogen Negative (Negative) 11/09/20 16:11 Ur Leukocyte Esterase 2+ (Negative) H 11/09/20 16:11 Urine WBC (Auto) >30 /hpf (0-5) H 11/09/20 16:11 Urine RBC (Auto) 0-4 /hpf (0-4) 11/09/20 16:11 U Hyaline Cast (Auto) 1-5 /lpf (0-5) 11/09/20 16:11 U Epithel Cells (Auto) >30 /lpf (0-5) H 11/09/20 16:11 Urine Bacteria (Auto) 4+ (Negative) H 11/09/20 16:11 Urine Crystals Not Reportable 11/09/20 16:11 Other Crystals Talc (None Prsent) 11/09/20 16:11 Urine Yeast Not Reportable 11/09/20 16:11 COVID-19 Eval Order Covid19 at [facility] 11/09/20 19:17 SARS-CoV-2 (PCR) NEGATIVE (Negative) 11/09/20 19:[address] 11/09/20 15:38 CT head/brain wo con CLINICAL HISTORY: ams COMPARISON STUDY: No previous studies for comparison. TECHNIQUE: Axial CT of the brain is performed from the vertex to the skull base. IV contrast was not administered for this examination. A dose lowering technique was utilized adhering to the principles of ALARA. CT DOSE: 746.71 mGy.cm FINDINGS: No intra or extra-axial mass lesions are visualized. There is no CT evidence of acute cortical infarction. There is no evidence of midline shift. There is no acute hemorrhage. No acute depressed calvarial fractures are visualized. There are patchy white matter hypodensities likely on a small vessel basis. Atrophic changes of brain parenchyma are seen and associated with ex vacuo dilatation of ventricles. There is no evidence of acute sinusitis IMPRESSION: 1. No acute intracranial hemorrhage, no midline shift or space occupying lesions. 2. Chronic small vessel ischemia. 3. Atrophic changes of brain parenchyma associated with ex vacuo dilatation of ventricles. ACT 112: Negative or not required by law. The above report was generated using voice recognition software. It may contain grammatical, syntax or spelling errors. Electronically signed by: Connie Guaman DO 11/09/2020 4:50 PM KUB X-Ray 11/09/20 15:38 XR KUB/Abdomen 1 view CLINICAL HISTORY: constipation COMPARISON STUDY: No previous studies for comparison. FINDINGS: Nondilated stool and gas filled loops of bowel are seen. Moderate amount of stool is seen within left hemiabdomen. Cholecystectomy clips, degenerative changes of the spine and orthopedic hardware within left hip joint are seen. Also osseous structures are diffusely demineralized. Slightly rotated right femoral head is seen. IMPRESSION: 1. Nonobstructive bowel gas pattern. ACT 112: Negative or not required by law. The above report was generated using voice recognition software. It may contain grammatical, syntax or spelling errors. Electronically signed by: Connie Guaman DO 11/09/2020 5:09 PM Chest X-Ray 11/09/20 15:39 XR chest 1V portable CLINICAL HISTORY: ?aspiration COMPARISON STUDY: No previous studies for comparison. FINDINGS: No pneumothorax. No pleural effusion. No large infiltrates or consolidative lesions are seen. Cardiomediastinal silhouette is within normal limits in size. No significant pulmonary vascular congestion.. Aorta is calcified Osseous structures: Severe degenerative changes of the left shoulder. Mild thoracolumbar scoliosis. IMPRESSION: 1. No acute pulmonary process. ACT 112: Negative or not required by law. The above report was generated using voice recognition software. It may contain grammatical, syntax or spelling errors. Electronically signed by: Connie Guaman DO 11/09/2020 5:10 PM Abdomen/Pelvis CT 11/09/20 18:10 CT abd pelvis IV con only CLINICAL HISTORY: uti, ams COMPARISON STUDY: None. TECHNIQUE: A dose lowering technique was utilized adhering to the principles of ALARA. CT DOSE: 301.14 mGy.cm FINDINGS: Lower chest: Limited evaluation of lung bases shows no evidence of acute abnormalities.. Liver: The contrast-enhanced liver is normal in size, contour, and attenuation. There is no intrahepatic biliary ductal dilatation. The hepatic veins and portal veins are patent. Gallbladder: Is surgically absent. Spleen: Normal in size and attenuation. Pancreas: Is atrophic. 4.4 x 3.6 cm cyst is seen with adjacent to pancreatic tail (3/115). Diffuse prominence of pancreatic duct is seen. Adrenal glands: Unremarkable. Kidneys: No hydronephrosis or nephrolithiasis is seen. Cortical scarring is seen within left kidney, otherwise there is diffuse homogeneous cortical enhancement. Pelvic viscera: Urinary bladder is fluid-filled. Uterus is surgically absent. Bowel: Bowel loops are nondilated. Duodenal diverticulum is seen. Appendix is not well visualized. Significant amount of stool is seen within lower pelvic region which could represents fecal impaction. Minimal fat stranding surrounding cecum is seen. Peritoneum: There is no intraperitoneal free air or abdominal ascites. Vasculature: Abdominal aorta is nondilated. Heavy concentric calcifications are seen within distal aspect of abdominal aorta. Adenopathy: None Skeletal structures: Osteopenia. Multilevel degenerative changes of the spine. Orthopedic hardware is seen within left hip. IMPRESSION: 1. Fecal impaction. 2. Nondilated loops of bowel. Questionable minimal fat stranding is seen surrounding cecum which might represent inflammatory process/colitis. 3. Atrophic pancreas with large pancreatic cyst. Please correlate this findings with prior history of pancreatic abnormalities. Further GI evaluation and possible MRI of the abdomen on nonemergency basis might be considered. 4. Status post cholecystectomy and hysterectomy. 5. Atherosclerosis. 6. The rest of findings as above ACT 112: Negative or not required by law. The above report was generated using voice recognition software. It may contain grammatical, syntax or spelling errors. Electronically signed by: Connie Guaman DO 11/09/2020 8:19 PM Code Status & VTE Plan VTE Prophylaxis Plan VTE Prophylaxis will be ordered: Yes PG Care Time/CCT Total # of Minutes Spent Total Time Spent with Patient: Total time spent is greater than 50% in coordination of care (as documented) at patient's floor/unit and/or counseling patient: Coding Level of Care Code 40615 Initial Inpt Care Lvl 3 Diagnoses VTE (venous thromboembolism) I82.90 Depression F32.9 Peripheral vascular disease I73.9 Hyperlipidemia E78.5 Hypertension I10 Diabetes E11.9 Dementia F03.90 UTI (urinary tract infection) N39.0 Hypomagnesemia E83.42 Fecal impaction K56.41 Declining functional status R53.81 Pancreatic cyst K86.2 GERD (gastroesophageal reflux disease) K21.9 Hypothyroid E03.9
--- NOTE | 2020-11-09 20:20 | CT Scan Report ---
CT abd pelvis IV con only CLINICAL HISTORY: uti, ams COMPARISON STUDY: None. TECHNIQUE: A dose lowering technique was utilized adhering to the principles of ALARA. CT DOSE: 301.14 mGy.cm FINDINGS: Lower chest: Limited evaluation of lung bases shows no evidence of acute abnormalities.. Liver: The contrast-enhanced liver is normal in size, contour, and attenuation. There is no intrahepa tic biliary ductal dilatation. The hepatic veins and portal veins are patent. Gallbladder: Is surgically absent. Spleen: Normal in size and attenuation. Pancreas: Is atrophic. 4.4 x 3.6 cm cyst is seen with adjacent to pancreatic tail (3/115). Diffuse pr ominence of pancreatic duct is seen. Adrenal glands: Unremarkable. Kidneys: No hydronephrosis or nephrolithiasis is seen. Cortical scarring is seen within left kidney, otherwise there is diffuse homogeneous cortical enhancement. Pelvic viscera: Urinary bladder is fluid-filled. Uterus is surgically absent. Bowel: Bowel loops are nondilated. Duodenal diverticulum is seen. Appendix is not well visualized. Si gnificant amount of stool is seen within lower pelvic region which could represents fecal impaction. Minimal fat stranding surrounding cecum is seen. Peritoneum: There is no intraperitoneal free air or abdominal ascites. Vasculature: Abdominal aorta is nondilated. Heavy concentric calcifications are seen within distal as pect of abdominal aorta. Adenopathy: None Skeletal structures: Osteopenia. Multilevel degenerative changes of the spine. Orthopedic hardware is seen within left hip. IMPRESSION: 1. Fecal impaction. 2. Nondilated loops of bowel. Questionable minimal fat stranding is seen surrounding cecum which rica ht represent inflammatory process/colitis. 3. Atrophic pancreas with large pancreatic cyst. Please correlate this findings with prior history o f pancreatic abnormalities. Further GI evaluation and possible MRI of the abdomen on nonemergency bas is might be considered. 4. Status post cholecystectomy and hysterectomy. 5. Atherosclerosis. 6. The rest of findings as above ACT 112: Negative or not required by law. The above report was generated using voice recognition software. It may contain grammatical, syntax o r spelling errors. Electronically signed by: Connie Guaman DO 11/09/2020 8:19 PM
[2020-11-09] MEDS ORDERED: bisacodyL 10 MG SUPP PR STA (20:36)
[2020-11-09] MEDS ORDERED: ACETAMINOPHEN 325 MG TAB PO PRN (23:05)
[2020-11-09] MEDS ORDERED: GLUCOSE 40% GEL 15 GM TUBE PO PRN (23:05)
[2020-11-09] MEDS ORDERED: CARBOHYDRATES FOR HYPOGLYCEMIA PO PRN (23:05)
[2020-11-09] MEDS ORDERED: bisacodyL 10 MG SUPP PR PRN (23:05)
[2020-11-09] MEDS ORDERED: ONDANSETRON INJ 2 MG/ML 2 ML VIAL IV PRN (23:05)
[2020-11-09] MEDS ORDERED: GLUCAGON FOR INJ 1 MG VIAL SQ PRN (23:05)
[2020-11-09] MEDS ORDERED: ENOXAPARIN 1 MG/KG SQ SCH (23:05)
[2020-11-09] MEDS ORDERED: GLUCOSE 10 TABS/TUBE PO PRN (23:05)
[2020-11-09] MEDS ORDERED: DEXTROSE 50% 50 ML SYRINGE IV PRN (23:05)
[2020-11-09] MEDS ORDERED: INSULIN ASPART 100 UNITS/ML 3 ML PEN SC SCH (23:15)
[2020-11-09] MEDS ORDERED: POTASSIUM CHLORIDE 20 MEQ in LACTATED RINGER'S 1,000 ML IV SCH (23:15)
[2020-11-09 23:28] LABS: Phosphorus 2.3 mg/dl (2.5-4.9)
[2020-11-09] MEDS: INSULIN GLARGINE SOLOSTAR 100 UNITS/ML 3 ML PEN SC SCH (23:52)
[2020-11-09] MEDS: INSULIN ASPART 100 UNITS/ML 3 ML PEN SC SCH (23:52)
[2020-11-09] MEDS: PATIENT'S HEIGHT AND/OR WEIGHT NEEDED SCH (23:55)
[2020-11-09] MEDS ORDERED: ENOXAPARIN INJ 60 MG/0.6 ML SYR SQ STA (23:59)
[2020-11-10] MEDS: PATIENT'S HEIGHT AND/OR WEIGHT NEEDED SCH (00:22)
[2020-11-10] MEDS: INSULIN ASPART 100 UNITS/ML 3 ML PEN SC SCH ×3 (06:19→18:02)
[2020-11-10 06:46] LABS: Basophils # (auto) 0.03 K/uL (0-0.2); Basophils % (auto) 0.4 %; Eosinophils # (auto) 0.11 K/uL (0-0.5); Eosinophils % (auto) 1.5 %; Hematocrit (blood only) 34.5 % (37-47); Hemoglobin 11.1 g/dL (12.0-16.0); Immature Granulocytes # (auto) 0.02 K/uL (0.00-0.02); Immature Granulocytes % (auto) 0.3 %; Lymphocytes # (auto) 2.06 K/uL (1.2-3.4); Lymphocytes % (auto) 27.7 %; Mean Corpuscular Hemoglobin 27.7 pg (25-34); Mean Corpuscular Hgb Conc 32.2 g/dL (32-36); Mean Platelet Volume 10.4 fL (7.4-10.4); Monocytes # (auto) 0.72 K/uL (0.11-0.59); Monocytes % (auto) 9.7 %; Neutrophils # (auto) 4.49 K/uL (1.4-6.5); Neutrophils % (auto) 60.4 %; Platelet Count 172 K/uL (130-400); RDW Coefficient of Variation 15.4 % (11.5-14.5); RDW Standard Deviation 48.3 fL (36.4-46.3); Red Blood Count 4.01 M/uL (4.2-5.4); White Blood Count 7.43 K/uL (4.8-10.8)
[2020-11-10 07:23] LABS: BUN Creatinine Ratio 16.3 (10-20); Calcium 8.8 mg/dl (8.5-10.1); Creatinine Clr Calc Pharmacy 47.6 ml/min; Est GFR (African American) 98.6 ml/min; Est GFR (Non-African American) 85.1 ml/min; Magnesium 1.3 mg/dl (1.8-2.4); Potassium 3.2 mmol/L (3.5-5.1)
[2020-11-10] MEDS: FAMOTIDINE 20 MG in SYRINGE 3 ML IV SCH (09:01)
[2020-11-10] MEDS: DONEPEZIL HCL 10 MG TAB PO SCH (09:01)
--- NOTE | 2020-11-10 09:03 | Electrocardiogram Report ---
Test Reason : Blood Pressure : / mmHG Vent. Rate : 078 BPM Atrial Rate : 078 BPM P-R Int : 128 ms QRS Dur : 074 ms QT Int : 382 ms P-R-T Axes : 060 045 065 degrees QTc Int : 435 ms Normal sinus rhythm Low voltage QRS Borderline ECG No previous ECGs available Confirmed by Bruce Baker ([id number]) on 11/10/2020 9:02:47 AM Referred By: REFERRED SELF Confirmed By:Bruce Baker
[2020-11-10] MEDS: POTASSIUM CHLORIDE / WTR 10 MEQ/100 ML PLCT IV SCH ×4 (11:36→14:49)
[2020-11-10] MEDS: MAGNESIUM SULFATE / D5W 1 GM/100 ML BAG IV SCH ×3 (11:36→15:59)
--- NOTE | 2020-11-10 14:42 | Hospitalist Progress Note ---
Date of Service November 10, 2020 Assessment & Plan (1) Declining functional status: Plan: 70yo female with history of Dementia presenting from home with functional decline. Patient has been declining over the past year with rapid decline over the last 3 months and week. She is presently bed bound, nonverbal. She is eating small amounts but not taking her medications x 3 days prior to admission. Cause most likely multifactorial - unfortunately may largely be due to progression of underlying dementia but also fecal impaction, UTI, hypokalemia/hypomagnesemia and dehydration may be playing a roll as well. Family is at bedside and provides care for the patient at home. They are willing to continue home care but feel that they may need some additional support equipment and possibly nursing care. Continued stay -Frequent orientation -Treatment of acute and chronic issues as below (2) Dysphagia: Plan: Speech therapy cannot evaluate until patient is moving bowels and advanced the diet Will await till tomorrow to see if more back at baseline before advancing diet? She is moving her bowels now Continue maintenance IV fluids while n.p.o. (3) Dementia: Plan: Patient with severe dementia. Question of possible Parkinson's disease given resting tremor and tongue fasciculations previously noted during ENT encounter. Patient is scheduled to see Neurology in December -Continue Aricept once taking pills -Frequent orientation, delirium prevention strategies -Patient is nonverbal and is unable to use call conner -Turn q 2 hours - monitor for skin breakdown -Aspiration precautions (4) Fecal impaction: Plan: Fecal impaction noted on CT as well as a large pancreatic cyst noted. Family states patient has not had a BM x 5 days prior to admission Now had a large bowel movement on 11/09 and 11/10 after receiving Dulcolax and soapsuds enema -IVF and electrolyte repletion (5) UTI (urinary tract infection): Plan: Patient afebrile, HD stable, non-toxic in appearance. Unable to endorse symptoms of dysuria, frequency or urgency. Patient is urinary incontinent. UA suggestive of infection. -Follow urine cultures -Continue ceftriaxone 1gm IV daily (6) Hypomagnesemia: Plan: Mg = 0.7 on admission and now improved but remains low at 1.3. Most likely from poor PO intake and nutritional decline Replete with another 3 g of IV magnesium sulfate -Repeat Mg level in AM (7) Pancreatic cyst: Plan: Incidental finding on imaging. Lipase is WNL. No indication of abdominal tenderness. -Consider additional imaging and GI consultation as an outpatient if family desires (8) VTE (venous thromboembolism): Plan: Patient with history of VTE. She is on Coumadin with INR of 3.3 on admission. Presently unable to swallow medications. -Hold PO Coumadin -Therapeutic Lovenox once INR subtherapeutic (9) Peripheral vascular disease: Plan: Patient with history of peripheral vascular disease. Extremities presently warm, well perfused with palpable pulses -Hold Plavix and Atorvastatin until patient able to tolerated PO and swallow appropriately (10) Depression: Plan: Chronic -Hold Duloxetine for now until patient able to swallow (11) Hyperlipidemia: Plan: Chronic. Hold Atorvastatin for now until patient able to tolerate PO (12) Hypertension: Plan: Blood pressure adequately controlled at present to slightly elevated -Hold Metoprolol and Lisinopril for now until patient able to take PO -Continue to monitor -Can add IV hydralazine as needed (13) Diabetes: Plan: Chronic. With some mild hyperglycemia on admission which is improved -Lantus 7u qHS -ISS -Goal blood sugar 100 - 140 (14) GERD (gastroesophageal reflux disease): Plan: Chronic -Hold PO Protonix from home -Pepcid 20mg IV daily until patient can tolerate PO (15) Hypothyroid: Plan: Chronic -Hold PO Synthroid 50mcg - Will give 25mcg IV daily until patient can tolerate PO TSH checked here is normal (16) Hypokalemia: Plan: Potassium low also due to poor p.o. intake Continue replacement with IV potassium chloride Follow BMP in the morning Replacing magnesium Plan: Ppx -Coumadin as above, switch to Lovenox if still unable to take p.o. once INR is subtherapeutic Code - DNR/DNI per discussion with family Dispo -continued stay, PT/OT evaluation. Goal is for discharge home with additional support as needed after acute issues have been treated. Admission and Anticipated Discharge Date Admission Date: November 09, 2020 Subjective Patient completely nonverbal. Nursing reports that she had a large bowel movement last night and this morning. Review of Systems Review of Systems: Unobtainable due to cognitive status Physical Exam Constitutional: WD/WN, vitals as above Eyes: PERRL, conjunctivae normal, anicteric sclerae Neck: trachea midline, no thyromegaly Respiratory: normal respiratory effort, lungs clear to auscultation Cardiovascular: RRR, no murmur, no edema Chest (Breasts): Chest: normal inspection of chest Gastrointestinal (Abdomen): normal bowel sounds, soft, nontender, no hepatosplenomegaly Musculoskeletal: Extremities: extremities normal to inspection; no cyanosis and no clubbing Skin: no rashes, warm and dry Neurologic: awake; no focal motor deficits (Does move all extremities with passive range of motion against resistance) Speech / Cognition: + expressive aphasia Lymphatic: no lymphedema Results & Data Results & Data ([facility]) Vital Signs (Past 12 Hours) Vital Signs Temp Pulse Resp BP Pulse Ox 11/10/20 07:33 37 C 100 H 20 152/83 H 92 Laboratory Results 11/10/20 11/10/20 11/10/20 Range/Units 12:26 06:30 06:30 WBC 7.43 (4.8-10.8) K/uL RBC 4.01 L (4.2-5.4) M/uL Hgb 11.1 L (12.0-16.0) g/dL Hct 34.5 L (37-47) % MCV 86.0 (80-100) fL MCH 27.7 (25-34) pg MCHC 32.2 (32-36) g/dL RDW Std Deviation 48.3 H (36.4-46.3) fL RDW Coeff of Concetta 15.4 H (11.5-14.5) % Plt Count 172 (130-400) K/uL MPV 10.4 (7.4-10.4) fL Immature Gran % (Auto) 0.3 % Neut % (Auto) 60.4 % Lymph % (Auto) 27.7 % Pike % (Auto) 9.7 % Eos % (Auto) 1.5 % Baso % (Auto) 0.4 % Neut # (Auto) 4.49 (1.4-6.5) K/uL Lymph # (Auto) 2.06 (1.2-3.4) K/uL Pike # (Auto) 0.72 H (0.11-0.59) K/uL Eos # (Auto) 0.11 (0-0.5) K/uL Baso # (Auto) 0.03 (0-0.2) K/uL Immature Gran # (Auto) 0.02 (0.00-0.02) K/uL PT (9.0-12.0) Seconds INR (0.9-1.1) Sodium 138 (136-145) mmol/L Potassium 3.2 L (3.5-5.1) mmol/L Chloride 103 (98-107) mmol/L Carbon Dioxide 27 (21-32) mmol/L Anion Gap 8.0 (3-11) BUN 12 (7-18) mg/dl Creatinine 0.71 (0.6-1.2) mg/dl Est Cr Clr Drug Dosing 47.6 Est GFR ( Amer) 98.6 ml/min Est GFR (Non-Af Amer) 85.1 ml/min BUN/Creatinine Ratio 16.3 (10-20) Glucose 131 H (70-99) mg/dl POC Glucose 178 H (70-99) mg/dl Calcium 8.8 (8.5-10.1) mg/dl Phosphorus (2.5-4.9) mg/dl Magnesium 1.3 L (1.8-2.4) mg/dl Total Bilirubin (0.2-1) mg/dl AST (15-37) U/L ALT (12-78) U/L Alkaline Phosphatase (45-117) U/L Troponin I (0-0.045) ng/ml NT-Pro-B Natriuret Pep (0-900) pg/ml Total Protein (6.4-8.2) gm/dl Albumin (3.4-5.0) gm/dl Globulin (2.5-4.0) gm/dl Albumin/Globulin Ratio (0.9-2) Lipase (73-393) U/L TSH (0.300-4.500) uIu/ml Urine Color Urine Appearance (Clear) Urine pH (4.5-7.5) Ur Specific Maxwell (1.000-1.030) Urine Protein (Negative) Urine Glucose (UA) (Negative) Urine Ketones (Negative) Urine Blood (Negative) Urine Nitrite (Negative) Urine Bilirubin (Negative) Urine Urobilinogen (Negative) Ur Leukocyte Esterase (Negative) Urine WBC (Auto) (0-5) /hpf Urine RBC (Auto) (0-4) /hpf U Hyaline Cast (Auto) (0-5) /lpf U Epithel Cells (Auto) (0-5) /lpf Urine Bacteria (Auto) (Negative) Urine Crystals Other Crystals (None Prsent) Urine Yeast COVID-19 Eval Order SARS-CoV-2 (PCR) (Negative) 11/10/20 11/09/20 11/09/20 Range/Units 06:03 23:43 19:17 WBC (4.8-10.8) K/uL RBC (4.2-5.4) M/uL Hgb (12.0-16.0) g/dL Hct (37-47) % MCV (80-100) fL MCH (25-34) pg MCHC (32-36) g/dL RDW Std Deviation (36.4-46.3) fL RDW Coeff of Concetta (11.5-14.5) % Plt Count (130-400) K/uL MPV (7.4-10.4) fL Immature Gran % (Auto) % Neut % (Auto) % Lymph % (Auto) % Pike % (Auto) % Eos % (Auto) % Baso % (Auto) % Neut # (Auto) (1.4-6.5) K/uL Lymph # (Auto) (1.2-3.4) K/uL Pike # (Auto) (0.11-0.59) K/uL Eos # (Auto) (0-0.5) K/uL Baso # (Auto) (0-0.2) K/uL Immature Gran # (Auto) (0.00-0.02) K/uL PT (9.0-12.0) Seconds INR (0.9-1.1) Sodium (136-145) mmol/L Potassium (3.5-5.1) mmol/L Chloride (98-107) mmol/L Carbon Dioxide (21-32) mmol/L Anion Gap (3-11) BUN (7-18) mg/dl Creatinine (0.6-1.2) mg/dl Est Cr Clr Drug Dosing Est GFR ( Amer) ml/min Est GFR (Non-Af Amer) ml/min BUN/Creatinine Ratio (10-20) Glucose (70-99) mg/dl POC Glucose 139 H 232 H (70-99) mg/dl Calcium (8.5-10.1) mg/dl Phosphorus (2.5-4.9) mg/dl Magnesium (1.8-2.4) mg/dl Total Bilirubin (0.2-1) mg/dl AST (15-37) U/L ALT (12-78) U/L Alkaline Phosphatase (45-117) U/L Troponin I (0-0.045) ng/ml NT-Pro-B Natriuret Pep (0-900) pg/ml Total Protein (6.4-8.2) gm/dl Albumin (3.4-5.0) gm/dl Globulin (2.5-4.0) gm/dl Albumin/Globulin Ratio (0.9-2) Lipase (73-393) U/L TSH (0.300-4.500) uIu/ml Urine Color Urine Appearance (Clear) Urine pH (4.5-7.5) Ur Specific Maxwell (1.000-1.030) Urine Protein (Negative) Urine Glucose (UA) (Negative) Urine Ketones (Negative) Urine Blood (Negative) Urine Nitrite (Negative) Urine Bilirubin (Negative) Urine Urobilinogen (Negative) Ur Leukocyte Esterase (Negative) Urine WBC (Auto) (0-5) /hpf Urine RBC (Auto) (0-4) /hpf U Hyaline Cast (Auto) (0-5) /lpf U Epithel Cells (Auto) (0-5) /lpf Urine Bacteria (Auto) (Negative) Urine Crystals Other Crystals (None Prsent) Urine Yeast COVID-19 Eval Order SARS-CoV-2 (PCR) NEGATIVE (Negative) 11/09/20 11/09/20 11/09/20 Range/Units 19:17 16:11 15:57 WBC (4.8-10.8) K/uL RBC (4.2-5.4) M/uL Hgb (12.0-16.0) g/dL Hct (37-47) % MCV (80-100) fL MCH (25-34) pg MCHC (32-36) g/dL RDW Std Deviation (36.4-46.3) fL RDW Coeff of Concetta (11.5-14.5) % Plt Count (130-400) K/uL MPV (7.4-10.4) fL Immature Gran % (Auto) % Neut % (Auto) % Lymph % (Auto) % Pike % (Auto) % Eos % (Auto) % Baso % (Auto) % Neut # (Auto) (1.4-6.5) K/uL Lymph # (Auto) (1.2-3.4) K/uL Pike # (Auto) (0.11-0.59) K/uL Eos # (Auto) (0-0.5) K/uL Baso # (Auto) (0-0.2) K/uL Immature Gran # (Auto) (0.00-0.02) K/uL PT (9.0-12.0) Seconds INR (0.9-1.1) Sodium 137 (136-145) mmol/L Potassium 3.2 L (3.5-5.1) mmol/L Chloride 103 (98-107) mmol/L Carbon Dioxide 26 (21-32) mmol/L Anion Gap 8.0 (3-11) BUN 17 (7-18) mg/dl Creatinine 0.94 (0.6-1.2) mg/dl Est Cr Clr Drug Dosing Not Reportable Est GFR ( Amer) 70.2 ml/min Est GFR (Non-Af Amer) 60.6 ml/min BUN/Creatinine Ratio 18.3 (10-20) Glucose 224 H (70-99) mg/dl POC Glucose (70-99) mg/dl Calcium 9.5 (8.5-10.1) mg/dl Phosphorus 2.3 L (2.5-4.9) mg/dl Magnesium 0.7 L* (1.8-2.4) mg/dl Total Bilirubin 0.7 (0.2-1) mg/dl AST 14 L (15-37) U/L ALT 11 L (12-78) U/L Alkaline Phosphatase 65 (45-117) U/L Troponin I < 0.015 (0-0.045) ng/ml NT-Pro-B Natriuret Pep 97 (0-900) pg/ml Total Protein 6.7 (6.4-8.2) gm/dl Albumin 3.3 L (3.4-5.0) gm/dl Globulin 3.4 (2.5-4.0) gm/dl Albumin/Globulin Ratio 1.0 (0.9-2) Lipase 111 (73-393) U/L TSH 1.290 (0.300-4.500) uIu/ml Urine Color Dark Yellow Urine Appearance Turbid A (Clear) Urine pH 8.5 H (4.5-7.5) Ur Specific Maxwell 1.021 (1.000-1.030) Urine Protein 1+ H (Negative) Urine Glucose (UA) Negative (Negative) Urine Ketones Trace H (Negative) Urine Blood Negative (Negative) Urine Nitrite Negative (Negative) Urine Bilirubin Negative (Negative) Urine Urobilinogen Negative (Negative) Ur Leukocyte Esterase 2+ H (Negative) Urine WBC (Auto) >30 H (0-5) /hpf Urine RBC (Auto) 0-4 (0-4) /hpf U Hyaline Cast (Auto) 1-5 (0-5) /lpf U Epithel Cells (Auto) >30 H (0-5) /lpf Urine Bacteria (Auto) 4+ H (Negative) Urine Crystals Not Reportable Other Crystals Talc (None Prsent) Urine Yeast Not Reportable COVID-19 Eval Order Covid19 at [facility] SARS-CoV-2 (PCR) (Negative) 11/09/20 11/09/20 Range/Units 15:57 15:57 WBC 11.06 H (4.8-10.8) K/uL RBC 4.25 (4.2-5.4) M/uL Hgb 11.9 L (12.0-16.0) g/dL Hct 36.7 L (37-47) % MCV 86.4 (80-100) fL MCH 28.0 (25-34) pg MCHC 32.4 (32-36) g/dL RDW Std Deviation 49.9 H (36.4-46.3) fL RDW Coeff of Concetta 15.8 H (11.5-14.5) % Plt Count 214 (130-400) K/uL MPV 10.7 H (7.4-10.4) fL Immature Gran % (Auto) 0.3 % Neut % (Auto) 75.7 % Lymph % (Auto) 14.9 % Pike % (Auto) 8.2 % Eos % (Auto) 0.7 % Baso % (Auto) 0.2 % Neut # (Auto) 8.37 H (1.4-6.5) K/uL Lymph # (Auto) 1.65 (1.2-3.4) K/uL Pike # (Auto) 0.91 H (0.11-0.59) K/uL Eos # (Auto) 0.08 (0-0.5) K/uL Baso # (Auto) 0.02 (0-0.2) K/uL Immature Gran # (Auto) 0.03 H (0.00-0.02) K/uL PT 30.1 H (9.0-12.0) Seconds INR 3.3 H (0.9-1.1) Sodium (136-145) mmol/L Potassium (3.5-5.1) mmol/L Chloride (98-107) mmol/L Carbon Dioxide (21-32) mmol/L Anion Gap (3-11) BUN (7-18) mg/dl Creatinine (0.6-1.2) mg/dl Est Cr Clr Drug Dosing Est GFR ( Amer) ml/min Est GFR (Non-Af Amer) ml/min BUN/Creatinine Ratio (10-20) Glucose (70-99) mg/dl POC Glucose (70-99) mg/dl Calcium (8.5-10.1) mg/dl Phosphorus (2.5-4.9) mg/dl Magnesium (1.8-2.4) mg/dl Total Bilirubin (0.2-1) mg/dl AST (15-37) U/L ALT (12-78) U/L Alkaline Phosphatase (45-117) U/L Troponin I (0-0.045) ng/ml NT-Pro-B Natriuret Pep (0-900) pg/ml Total Protein (6.4-8.2) gm/dl Albumin (3.4-5.0) gm/dl Globulin (2.5-4.0) gm/dl Albumin/Globulin Ratio (0.9-2) Lipase (73-393) U/L TSH (0.300-4.500) uIu/ml Urine Color Urine Appearance (Clear) Urine pH (4.5-7.5) Ur Specific Maxwell (1.000-1.030) Urine Protein (Negative) Urine Glucose (UA) (Negative) Urine Ketones (Negative) Urine Blood (Negative) Urine Nitrite (Negative) Urine Bilirubin (Negative) Urine Urobilinogen (Negative) Ur Leukocyte Esterase (Negative) Urine WBC (Auto) (0-5) /hpf Urine RBC (Auto) (0-4) /hpf U Hyaline Cast (Auto) (0-5) /lpf U Epithel Cells (Auto) (0-5) /lpf Urine Bacteria (Auto) (Negative) Urine Crystals Other Crystals (None Prsent) Urine Yeast COVID-19 Eval Order SARS-CoV-2 (PCR) (Negative) PG Care Time/CCT Total # of Minutes Spent Total Time Spent with Patient: Total time spent is greater than 50% in coordination of care (as documented) at patient's floor/unit and/or counseling patient: Coding Level of Care Code 41313 Subseq Hosp Care Lvl 2 Diagnoses Declining functional status R53.81 Fecal impaction K56.41 UTI (urinary tract infection) N39.0 Hypomagnesemia E83.42 Pancreatic cyst K86.2 Dementia F03.90 VTE (venous thromboembolism) I82.90 Peripheral vascular disease I73.9 Depression F32.9 Hyperlipidemia E78.5 Hypertension I10 Diabetes E11.9 GERD (gastroesophageal reflux disease) K21.9 Hypothyroid E03.9 Hypokalemia E87.6 Dysphagia R13.10
[2020-11-10] MEDS: LACTATED RINGER'S 1,000 ML IV SCH (18:01)
[2020-11-10] MEDS: cefTRIAXone SODIUM 1,000 MG in DEXTROSE 5% 50 ML IV SCH (18:01)
[2020-11-10] MEDS: INSULIN GLARGINE SOLOSTAR 100 UNITS/ML 3 ML PEN SC SCH (21:28)
[2020-11-11] MEDS: INSULIN ASPART 100 UNITS/ML 3 ML PEN SC SCH ×5 (00:09→23:38)
[2020-11-11] MEDS: LACTATED RINGER'S 1,000 ML IV SCH ×2 (05:58→23:38)
[2020-11-11 08:12] LABS: Basophils # (auto) 0.03 K/uL (0-0.2); Basophils % (auto) 0.5 %; Eosinophils # (auto) 0.12 K/uL (0-0.5); Eosinophils % (auto) 1.9 %; Hematocrit (blood only) 32.4 % (37-47); Hemoglobin 10.6 g/dL (12.0-16.0); Immature Granulocytes # (auto) 0.04 K/uL (0.00-0.02); Immature Granulocytes % (auto) 0.6 %; Lymphocytes # (auto) 1.66 K/uL (1.2-3.4); Lymphocytes % (auto) 26.8 %; Mean Corpuscular Hemoglobin 27.7 pg (25-34); Mean Corpuscular Hgb Conc 32.7 g/dL (32-36); Mean Corpuscular Volume 84.6 fL (80-100); Mean Platelet Volume 10.6 fL (7.4-10.4); Monocytes # (auto) 0.53 K/uL (0.11-0.59); Monocytes % (auto) 8.5 %; Neutrophils # (auto) 3.82 K/uL (1.4-6.5); Neutrophils % (auto) 61.7 %; Platelet Count 155 K/uL (130-400); RDW Coefficient of Variation 15.6 % (11.5-14.5); RDW Standard Deviation 47.7 fL (36.4-46.3); Red Blood Count 3.83 M/uL (4.2-5.4)
[2020-11-11] MEDS: FAMOTIDINE 20 MG in SYRINGE 3 ML IV SCH (08:16)
[2020-11-11] MEDS: DONEPEZIL HCL 10 MG TAB PO SCH (08:16)
[2020-11-11 08:54] LABS: BUN Creatinine Ratio 8.5 (10-20); Calcium 8.5 mg/dl (8.5-10.1); Creatinine Clr Calc Pharmacy 49.7 ml/min; Est GFR (African American) 101.3 ml/min; Est GFR (Non-African American) 87.4 ml/min; Magnesium 1.4 mg/dl (1.8-2.4); Phosphorus 2.3 mg/dl (2.5-4.9); Potassium 3.3 mmol/L (3.5-5.1)
[2020-11-11] MEDS ORDERED: POTASSIUM PHOS 3 MMOL/1 ML INFUSION IV STA (10:57)
[2020-11-11] MEDS ORDERED: POTASSIUM PHOSPHATE 21 MMOL in SODIUM CHLORIDE 0.9% 500 ML IV ONE (11:30)
[2020-11-11] MEDS: MAGNESIUM SULFATE / D5W 1 GM/100 ML BAG IV SCH ×2 (11:40→13:13)
--- NOTE | 2020-11-11 12:42 | Hospitalist Progress Note ---
Date of Service November 11, 2020 Assessment & Plan (1) Declining functional status: Plan: 70yo female with history of Dementia presenting from home with functional decline. Patient has been declining over the past year with rapid decline over the last 3 months and week. She is presently bed bound, nonverbal. She is eating small amounts but not taking her medications x 3 days prior to admission. Cause most likely multifactorial - unfortunately may largely be due to progression of underlying dementia but also fecal impaction, UTI, hypokalemia/hypomagnesemia and dehydration may be playing a roll as well. Family is at bedside and provides care for the patient at home. They are willing to continue home care but feel that they may need some additional support equipment and possibly nursing care. TSH normal -Order brain MRI with and without contrast -Check RPR, B1, B12, Lyme titer -Work-up for anemia as below -Consult neurology given neurological findings-May have secondary Parkinson Continued stay -Frequent orientation -Treatment of acute and chronic issues as below (2) Dysphagia: Plan: Speech therapy to evaluate today She is moving her bowels now Continue maintenance IV fluids until taking improved p.o. May need NG tube if family agreeable May consider palliative consultation for goals of care discussion (3) Dementia: Plan: Patient with severe dementia. Question of possible Parkinson's disease given resting tremor and tongue fasciculations previously noted during ENT encounter. Patient is scheduled to see Neurology in December but was started on Aricept several months ago by her new PCP -Continue Aricept once taking pills -Frequent orientation, delirium prevention strategies -Patient is nonverbal and is unable to use call conner -Turn q 2 hours - monitor for skin breakdown -Aspiration precautions -Work-up as above -Consult neurology here Checking brain MRI (4) Fecal impaction: Plan: Fecal impaction noted on CT as well as a large pancreatic cyst noted. Family states patient has not had a BM x 5 days prior to admission Now had a large bowel movement on 11/09 and 11/10 after receiving Dulcolax and soapsuds enema -IVF and electrolyte repletion (5) UTI (urinary tract infection): Plan: Patient afebrile, HD stable, non-toxic in appearance. Unable to endorse symptoms of dysuria, frequency or urgency. Patient is urinary incontinent. UA suggestive of infection. -Follow urine culture-with E. coli resistant to ampicillin, Augmentin, cefazolin, and intermediate resistance to Cipro. Sensitive to ceftriaxone -Continue ceftriaxone 1gm IV daily (6) Hypomagnesemia: Plan: Mg = 0.7 on admission and now improved but remains low. Most likely from poor PO intake and nutritional decline Replete with IV magnesium sulfate -Repeat Mg level in AM (7) Pancreatic cyst: Plan: Incidental finding on imaging. Lipase is WNL. No indication of abdominal tenderness. -Consider additional imaging and GI consultation as an outpatient if family desires (8) VTE (venous thromboembolism): Plan: Patient with history of VTE. She is on Coumadin with INR of 3.3 on admission. Presently unable to swallow medications. -Hold PO Coumadin until taking p.o. -Therapeutic Lovenox once INR subtherapeutic-checking INR today (9) Peripheral vascular disease: Plan: Patient with history of peripheral vascular disease. Extremities presently warm, well perfused with palpable pulses -Hold Plavix and Atorvastatin until patient able to tolerated PO and swallow appropriately (10) Depression: Plan: Chronic -Hold Duloxetine for now until patient able to swallow (11) Hyperlipidemia: Plan: Chronic. Hold Atorvastatin for now until patient able to tolerate PO (12) Hypertension: Plan: Blood pressure adequately controlled at present to slightly elevated -Hold Metoprolol and Lisinopril for now until patient able to take PO -Continue to monitor -Can add IV hydralazine as needed (13) Diabetes: Plan: Chronic. With some mild hyperglycemia that is persisting -Lantus 7u qHS -ISS-tighten down correction factor -Goal blood sugar 100 - 140 Check hemoglobin A1c (14) GERD (gastroesophageal reflux disease): Plan: Chronic -Hold PO Protonix from home -Pepcid 20mg IV daily until patient can tolerate PO (15) Hypothyroid: Plan: Chronic -Hold PO Synthroid 50mcg - Will give 25mcg IV daily until patient can tolerate PO TSH checked here is normal (16) Hypokalemia: Plan: Potassium low also due to poor p.o. intake Continue replacement with IV potassium chloride Follow BMP in the morning Replacing magnesium (17) Hypophosphatemia: Plan: Mildly low from poor p.o. intake Replace with potassium phosphorus Follow level in the morning (18) Anemia: Plan: Hemoglobin low at 10.7, normocytic Check iron studies, B12, folate No evidence of bleeding from anywhere Plan: Ppx -Coumadin as above, switch to Lovenox if still unable to take p.o. once INR is subtherapeutic Code - DNR/DNI per discussion with family Dispo -continued stay, PT/OT evaluation. Goal is for discharge home with additional support as needed after acute issues have been treated. Admission and Anticipated Discharge Date Admission Date: November 09, 2020 Subjective Patient completely nonverbal but does open eyes to loud verbal stimulus and painful stimulus. She moved her bowels again last night. Review of Systems Review of Systems: Unobtainable due to cognitive status Physical Exam Constitutional: WD/WN, vitals as above Eyes: PERRL, conjunctivae normal, anicteric sclerae Neck: trachea midline, no thyromegaly Respiratory: normal respiratory effort, lungs clear to auscultation Cardiovascular: RRR, no murmur, no edema Chest (Breasts): Chest: normal inspection of chest Gastrointestinal (Abdomen): normal bowel sounds, soft, nontender, no hepatosplenomegaly Musculoskeletal: Extremities: extremities normal to inspection; no cyanosis and no clubbing Skin: no rashes, warm and dry Neurologic: awake; no focal motor deficits (Does move all extremities with passive range of motion against resistance) Speech / Cognition: + expressive aphasia With cogwheel rigidity of right greater than left upper extremities, downgoing Babinski bilaterally, does withdraw to pain bilaterally, slight clonus in right ankle, otherwise difficult to assess neuro examination Lymphatic: no lymphedema Results & Data Results & Data ([facility]) Vital Signs (Past 12 Hours) Vital Signs Temp Pulse Resp BP Pulse Ox 11/11/20 07:45 36.7 C 98 H 18 137/66 93 Laboratory Results 11/11/20 11/11/20 11/11/20 Range/Units 07:40 07:40 06:11 WBC 6.20 (4.8-10.8) K/uL RBC 3.83 L (4.2-5.4) M/uL Hgb 10.6 L (12.0-16.0) g/dL Hct 32.4 L (37-47) % MCV 84.6 (80-100) fL MCH 27.7 (25-34) pg MCHC 32.7 (32-36) g/dL RDW Std Deviation 47.7 H (36.4-46.3) fL RDW Coeff of Concetta 15.6 H (11.5-14.5) % Plt Count 155 (130-400) K/uL MPV 10.6 H (7.4-10.4) fL Immature Gran % (Auto) 0.6 % Neut % (Auto) 61.7 % Lymph % (Auto) 26.8 % Mcdowell % (Auto) 8.5 % Eos % (Auto) 1.9 % Baso % (Auto) 0.5 % Neut # (Auto) 3.82 (1.4-6.5) K/uL Lymph # (Auto) 1.66 (1.2-3.4) K/uL Mcdowell # (Auto) 0.53 (0.11-0.59) K/uL Eos # (Auto) 0.12 (0-0.5) K/uL Baso # (Auto) 0.03 (0-0.2) K/uL Immature Gran # (Auto) 0.04 H (0.00-0.02) K/uL Sodium 135 L (136-145) mmol/L Potassium 3.3 L (3.5-5.1) mmol/L Chloride 101 (98-107) mmol/L Carbon Dioxide 25 (21-32) mmol/L Anion Gap 10.0 (3-11) BUN 6 L D (7-18) mg/dl Creatinine 0.68 (0.6-1.2) mg/dl Est Cr Clr Drug Dosing 49.7 ml/min Est GFR ( Amer) 101.3 ml/min Est GFR (Non-Af Amer) 87.4 ml/min BUN/Creatinine Ratio 8.5 L (10-20) Glucose 164 H (70-99) mg/dl POC Glucose 169 H (70-99) mg/dl Calcium 8.5 (8.5-10.1) mg/dl Phosphorus 2.3 L (2.5-4.9) mg/dl Magnesium 1.4 L (1.8-2.4) mg/dl 11/11/20 11/10/20 Range/Units 00:02 17:58 WBC (4.8-10.8) K/uL RBC (4.2-5.4) M/uL Hgb (12.0-16.0) g/dL Hct (37-47) % MCV (80-100) fL MCH (25-34) pg MCHC (32-36) g/dL RDW Std Deviation (36.4-46.3) fL RDW Coeff of Concetta (11.5-14.5) % Plt Count (130-400) K/uL MPV (7.4-10.4) fL Immature Gran % (Auto) % Neut % (Auto) % Lymph % (Auto) % Mcdowell % (Auto) % Eos % (Auto) % Baso % (Auto) % Neut # (Auto) (1.4-6.5) K/uL Lymph # (Auto) (1.2-3.4) K/uL Mcdowell # (Auto) (0.11-0.59) K/uL Eos # (Auto) (0-0.5) K/uL Baso # (Auto) (0-0.2) K/uL Immature Gran # (Auto) (0.00-0.02) K/uL Sodium (136-145) mmol/L Potassium (3.5-5.1) mmol/L Chloride (98-107) mmol/L Carbon Dioxide (21-32) mmol/L Anion Gap (3-11) BUN (7-18) mg/dl Creatinine (0.6-1.2) mg/dl Est Cr Clr Drug Dosing ml/min Est GFR ( Amer) ml/min Est GFR (Non-Af Amer) ml/min BUN/Creatinine Ratio (10-20) Glucose (70-99) mg/dl POC Glucose 178 H 203 H (70-99) mg/dl Calcium (8.5-10.1) mg/dl Phosphorus (2.5-4.9) mg/dl Magnesium (1.8-2.4) mg/dl PG Care Time/CCT Total # of Minutes Spent Total Time Spent with Patient: Total time spent is greater than 50% in coordination of care (as documented) at patient's floor/unit and/or counseling patient: Coding Level of Care Code 92846 Subseq Hosp Care Lvl 3 Diagnoses Declining functional status R53.81 Dysphagia R13.10 Dementia F03.90 Fecal impaction K56.41 UTI (urinary tract infection) N39.0 Hypomagnesemia E83.42 Pancreatic cyst K86.2 VTE (venous thromboembolism) I82.90 Peripheral vascular disease I73.9 Depression F32.9 Hyperlipidemia E78.5 Hypertension I10 Diabetes E11.9 GERD (gastroesophageal reflux disease) K21.9 Hypothyroid E03.9 Hypokalemia E87.6 Hypophosphatemia E83.39 Anemia D64.9
[2020-11-11 13:43] LABS: Ferritin 30.8 ng/ml (8-388)
[2020-11-11 14:15] LABS: Estimated Average Glucose 154 mg/dl
[2020-11-11 14:26] LABS: Lyme Ab IgG w/WB Rflx Negative (Negative); Lyme Ab IgM w/WB Rflx Negative (Negative)
[2020-11-11 16:51] LABS: Folate (Folic Acid) > 20.00 ng/ml (>5.38); Vitamin B12 81 pg/ml (193-986)
[2020-11-11] MEDS: cefTRIAXone SODIUM 1,000 MG in DEXTROSE 5% 50 ML IV SCH (17:48)
[2020-11-11] MEDS ORDERED: THIAMINE HCL 200 MG in SODIUM CHLORIDE 0.9% 50 ML IV ONE (20:00)
[2020-11-11] MEDS ORDERED: IRON SUCROSE 300 MG in SODIUM CHLORIDE 0.9% 250 ML IV ONE (20:00)
[2020-11-11] MEDS ORDERED: GADOBUTROL 65ML VIAL IV ONE (20:55)
[2020-11-11] MEDS: CYANOCOBALAMIN 1000 MCG/ML VIAL IM SCH (21:42)
[2020-11-11] MEDS: INSULIN GLARGINE SOLOSTAR 100 UNITS/ML 3 ML PEN SC SCH (21:56)
[2020-11-12] MEDS: INSULIN ASPART 100 UNITS/ML 3 ML PEN SC SCH ×3 (06:00→18:24)
--- NOTE | 2020-11-12 08:55 | Neurology Consultation ---
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 She has ophthalmoplegia, dysphagia, rigidity, a mild parkinsonian tremor, and a severe associated dementia. There is no proven treatment for progressive supranuclear palsy. However, trials of cholinesterase inhibitors and levodopa are reasonable. Yet, this patient has significant dysphagia and I doubt she will be able to tolerate p.o. medications. Furthermore, her condition appears to be quite advanced and the potential benefit of either of these medications would likely be very minimal. I see that she does have a vitamin B12 deficiency and IM B12 injections have been started which I think is appropriate. If she is able to swallow and take oral medications she may continue with donepezil 10 mg/day. Would also consider a trial of low-dose Sinemet starting with one half of a 25/100 mg tablet taken 3 times per day and increasing to 1 whole tablet 3 times per day after 1 week. However, as above, I think the potential benefit of either of these medications is likely very minimal in the context of what appears to be an advanced neurodegenerative disease, likely progressive supranuclear palsy or other similar neurodegeneration. I agree that palliative care may be a reasonable option at this time. 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 Currently, she is bedbound and nonverbal and has progressive dysphagia with poor p.o. intake. She has developed some axial rigidity, especially the head and neck musculature which are held in a modestly extensor posture. She has limited vertical gaze. She does not follow commands. She exhibits an intermittent parkinsonian rest tremor, right greater than left hand. She had established with a new PCP this past July. It looks like Aricept was started around that time. Past medical history notable for fracture of the femur, DVT/PE, and diabetes mellitus. She presented to the emergency department on November 09 for further evaluation and management of functional decline. Additional issues include fecal impaction, urinary tract infection, and vitamin B12 deficiency, recently started vitamin B12 injections. I reviewed the images pertaining to her recent neuroimaging including CT of the head and brain MRI. The studies revealed generalized atrophy and chronic small vessel ischemic disease. No findings suggestive of normal pressure hydrocephalus. Allergies Allergy/AdvReac Type Severity Reaction Status Date / Time No Known Drug Allergies Allergy Verified 11/09/20 15:48 Home Medications Medication Instructions Recorded Confirmed Type Lactobacillus 40-Bifidobact 1 cap PO DAILYBB 11/09/20 11/09/20 History 3-S.thermophilus 100 billion cell capsule (Probiotic) atorvastatin 10 mg tablet (Lipitor) 10 mg PO HS 11/09/20 11/09/20 History clopidogrel 75 mg tablet (Plavix) 75 mg PO QAM 11/09/20 11/09/20 History donepezil 5 mg tablet (Aricept) 10 mg PO QAM 11/09/20 11/09/20 History duloxetine 20 mg capsule,delayed 20 mg PO HS 11/09/20 11/09/20 History release (Cymbalta) insulin glargine 100 unit/mL (3 13 unit SUBCUT HS 11/09/20 11/09/20 History mL) subcutaneous pen (Lantus Solostar U-100 Insulin) insulin lispro 100 unit/mL 0 unit SUBCUT AC 11/09/20 11/09/20 History subcutaneous pen (Humalog KwikPen (U-100) Insulin) levothyroxine 50 mcg tablet 50 mcg PO DAILYBB 11/09/20 11/09/20 History (Synthroid) lisinopril 5 mg tablet (Zestril) 5 mg PO QAM 11/09/20 11/09/20 History metformin 1,000 mg tablet 1,000 mg PO BID 11/09/20 11/09/20 History metoprolol tartrate 50 mg tablet 50 mg PO BID 11/09/20 11/09/20 History (Lopressor) qnchnjmlrpfk-vzrjqiks-pgmigs 1 tab PO QAM 11/09/20 11/09/20 History tablet (Multivitamin 50 Plus) nystatin 100,000 unit/gram topical 1 applic TOPICAL DAILY PRN 11/09/20 11/09/20 History powder (Nystop) pantoprazole 40 mg tablet,delayed 40 mg PO DAILYBB 11/09/20 11/09/20 History release (Protonix) warfarin 4 mg tablet (Jantoven) 4 mg PO 4XWK 11/09/20 11/09/20 History warfarin 5 mg tablet (Jantoven) 2.5 mg PO 3XWK 11/09/20 11/09/20 History Patient History Medical History Dementia Depression Diabetes GERD (gastroesophageal reflux disease) Hyperlipidemia Hypertension Hypothyroid Peripheral vascular disease VTE (venous thromboembolism) Surgical History History of hip surgery Family History Other Unknown family medical history Social History Smoking Status: Unknown if ever smoked Tobacco Type: Cigarettes packs per day: 2; Years Smoked: 30; Hx Alcohol Use: No Hx Substance Use: No Communication Ability: Unable Current Living Situation: Family current occupational status: disabled Feels Safe at Home: Yes Assistive Devices: None Review of Systems Review of Systems: Unobtainable due to cognitive status Exam (Neuro) Physical Exam: Patient's neurological examination is limited due to what appears to be a severe/profound neurodegenerative dementia. She is nonverbal and will not follow commands. Patient's cognitive status cannot really be evaluated although I suspect she is not oriented and has considerable memory deficits. She is inattentive and nonverbal. Fund of knowledge is probably considerably reduced. Visual méndez and acuity could not be assessed. She does blink intermittently and exhibits intact blink and pupillary reflexes. Ocular motility is limited, especially vertical gaze. She will occasionally gaze to the sides. No nystagmus observed. Patient does not have obvious gross facial asymmetry of motor function. Hearing cannot be assessed. Movement of the tongue and palate cannot be assessed. Sensory examination cannot be reliably assessed although she does withdraw the lower limbs to plantar stimulation. Deep tendon reflexes are generally increased with upgoing toes bilaterally. Patient has an increased jaw jerk reflex and bilateral palmomental reflexes. Coordination cannot be assessed but is probably reduced. Patient does not cooperate for direct ophthalmoscopic examination. Carotid pulses normal bilaterally, no bruits to auscultation. Gait and station cannot be evaluated. Motor function/muscle strength cannot be evaluated although patient appears to have significant deconditioning and is probably considerably weak in general. Patient exhibits generally increased muscle tone with axial and some appendicular rigidity. There is generalized disuse atrophy. Patient does exhibit an intermittent parkinsonian rest tremor of the right hand. Results & Data ([facility]) Vital Signs (Past 12 Hours) Vital Signs Temp Pulse Resp BP Pulse Ox 11/12/20 07:36 37.1 C 104 H 16 162/81 H 90 11/11/20 22:58 36.9 C 105 H 18 120/75 92 Laboratory Results WBC 6.20, hemoglobin 10.6, hematocrit 32.4, platelet count 155, sodium 135, potassium 3.3, BUN 6, creatinine 0.68, glucose 164, hemoglobin A1c 7.0, calcium 8.5, magnesium 1.4, vitamin B12 81, TSH 1.290, vitamin B1 level pending, RPR pending, Lyme antibody screening negative. Diagnostic Findings Neuro imaging including CT of the head and brain MRI are as described in the history of present illness. Electrocardiogram reveals a normal sinus rhythm, 78 bpm. Coding Level of Care Code 97643 Initial Inpt Care Lvl 3 Diagnoses Progressive supranuclear palsy G23.1
[2020-11-12] MEDS ORDERED: LEVOTHYROXINE SODIUM 25 MCG in SYRINGE 0 ML IV SCH (09:00)
--- NOTE | 2020-11-12 09:23 | Magnetic Resonance Report ---
MR brain wo/w con HISTORY: 70 years-old Female progressive dementia,aphasia,assess for CVA acute strokelike symptoms w ith dementia. COMPARISON: Head CT 11/09/2020 TECHNIQUE: Multiplanar multisequence MRI of the brain was obtained both with and without the use of 5 .0 mL Gadavist FINDINGS: No restricted diffusion to suggest acute or subacute infarct. No pathologic artifact. Age-related inv olutional changes. No acute intracranial hemorrhage, midline shift, abnormal extra axial collection, hydrocephalus or intracranial mass. Confluent and extensive T2/FLAIR hyperintensities throughout the white matter. No abnormal enhancement. Cerebral venous sinuses and major arterial flow voids are link nt. Bilateral mastoid effusions. Mild mucosal thickening of the paranasal sinuses. Prior bilateral le ns repair. Skull and soft tissues are unremarkable. IMPRESSION: 1. No acute intracranial abnormality. No acute or subacute infarct. 2. Age-related involutional changes with extensive chronic microvascular ischemic disease. 3. No abnormal enhancement. ACT 112: Negative or not required by law. The above report was generated using voice recognition software. It may contain grammatical, syntax o r spelling errors. Electronically signed by: Pedro Tinoco M.D. 11/12/2020 9:22 AM
[2020-11-12 09:59] LABS: Basophils # (auto) 0.01 K/uL (0-0.2); Basophils % (auto) 0.2 %; Eosinophils # (auto) 0.17 K/uL (0-0.5); Eosinophils % (auto) 2.6 %; Hematocrit (blood only) 32.8 % (37-47); Hemoglobin 10.5 g/dL (12.0-16.0); Immature Granulocytes # (auto) 0.04 K/uL (0.00-0.02); Immature Granulocytes % (auto) 0.6 %; Lymphocytes # (auto) 1.06 K/uL (1.2-3.4); Mean Corpuscular Hemoglobin 27.4 pg (25-34); Mean Corpuscular Volume 85.6 fL (80-100); Mean Platelet Volume 10.7 fL (7.4-10.4); Monocytes # (auto) 0.61 K/uL (0.11-0.59); Monocytes % (auto) 9.2 %; Neutrophils # (auto) 4.75 K/uL (1.4-6.5); Neutrophils % (auto) 71.4 %; Platelet Count 157 K/uL (130-400); RDW Coefficient of Variation 15.8 % (11.5-14.5); RDW Standard Deviation 49.3 fL (36.4-46.3); Red Blood Count 3.83 M/uL (4.2-5.4); White Blood Count 6.64 K/uL (4.8-10.8)
[2020-11-12 10:10] LABS: INR 2.1 (0.9-1.1); Prothrombin Time 20.5 Seconds (9.0-12.0)
[2020-11-12 10:18] LABS: BUN Creatinine Ratio 7.4 (10-20); Calcium 8.3 mg/dl (8.5-10.1); Creatinine Clr Calc Pharmacy 54.5 ml/min; Est GFR (African American) 104.4 ml/min; Est GFR (Non-African American) 90.1 ml/min; Magnesium 1.2 mg/dl (1.8-2.4); Potassium 3.3 mmol/L (3.5-5.1)
[2020-11-12] MEDS: CYANOCOBALAMIN 1000 MCG/ML VIAL IM SCH (10:25)
[2020-11-12] MEDS: DONEPEZIL HCL 10 MG TAB PO SCH ×2 (10:29→16:59)
[2020-11-12] MEDS: FAMOTIDINE 20 MG in SYRINGE 3 ML IV SCH (10:36)
[2020-11-12] MEDS: THIAMINE HCL 200 MG in SODIUM CHLORIDE 0.9% 50 ML IV SCH (10:43)
[2020-11-12] MEDS: CARBIDOPA/LEVODOPA 25/100MG TAB PO SCH ×3 (11:16→20:56)
[2020-11-12] MEDS: MAGNESIUM SULFATE / D5W 1 GM/100 ML BAG IV SCH ×4 (12:44→20:00)
[2020-11-12] MEDS: POTASSIUM CHLORIDE / WTR 10 MEQ/100 ML PLCT IV SCH ×4 (12:44→16:45)
[2020-11-12] MEDS ORDERED: hydrALAZINE HCL 20 MG/ML VIAL IV ONE (17:05)
--- NOTE | 2020-11-12 17:08 | Hospitalist Progress Note ---
Date of Service November 12, 2020 Assessment & Plan (1) Declining functional status: Plan: 70yo female with history of Dementia presenting from home with functional decline. Patient has been declining over the past year with rapid decline over the last 3 months and week. She is presently bed bound, nonverbal. 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 Cause most likely multifactorial - unfortunately may largely be due to progression of underlying dementia but also fecal impaction, UTI, hypokalemia/hypomagnesemia and dehydration may be playing a roll as well. Family is at bedside and provides care for the patient at home. They are willing to continue home care but feel that they may need some additional support equipment and possibly nursing care. TSH normal -RPR negative, Lyme negative, B12 severely low, B1 pending Brain MRI with and without contrast without stroke or mass -Consult neurology appreciated-suspect advanced neurodegenerative disease such as progressive supranuclear palsy, multiple systems atrophy, or atypical Parkinson's -recommends trial of low dose SInemet 25/100mg 1/2 tab po tid Biggest issue is dysphagia-Speech following and plan most likely for VFSS on Tuesday but DIL to discuss with patient's children -very poor po intake, multiple electrolyte derangements, B12 deficiency -started IV thiamine 200mg daily, B12 IM injections, Fe IV -if not taking po, would need hospice as DIL fairly certain pt's advanced directive does not support feeding tube Palliative Consultation requested (2) Neurodegenerative disorder: Plan: as above (3) Dysphagia: Plan: as above is definitely more willing to eat with DIL present but is likely aspirating VFSS Tuesday Continue maintenance IV fluids and lyte replacement for now (4) Dementia: Plan: Patient with severe dementia. Question of possible Parkinson's disease given resting tremor and tongue fasciculations previously noted during ENT encounter. Patient is scheduled to see Neurology in December but was started on Aricept several months ago by her new PCP -Continue Aricept once taking pills -Frequent orientation, delirium prevention strategies -Patient is nonverbal and is unable to use call conner -Turn q 2 hours - monitor for skin breakdown -Aspiration precautions -Work-up as above -Consult neurology here as brenda (5) Fecal impaction: Plan: Fecal impaction noted on CT as well as a large pancreatic cyst noted. Family states patient has not had a BM x 5 days prior to admission Now had a large bowel movement on 11/09 and 11/10 after receiving Dulcolax and soapsuds enema, another one 11/12 -IVF and electrolyte repletion (6) UTI (urinary tract infection): Plan: Patient afebrile, HD stable, non-toxic in appearance. Unable to endorse symptoms of dysuria, frequency or urgency. Patient is urinary incontinent. UA suggestive of infection. -Follow urine culture-with E. coli resistant to ampicillin, Augmentin, cefazolin, and intermediate resistance to Cipro. Sensitive to ceftriaxone -Continue ceftriaxone 1gm IV daily x 5 day course (7) Hypomagnesemia: Plan: Mg = 0.7 on admission and now improved but remains low at 1.2. Most likely from poor PO intake and nutritional decline Replete with IV magnesium sulfate again today -Repeat Mg level in AM (8) Pancreatic cyst: Plan: Incidental finding on imaging. Lipase is WNL. No indication of abdominal tenderness. -Consider additional imaging and GI consultation as an outpatient if family desires (9) VTE (venous thromboembolism): Plan: Patient with history of VTE. She is on Coumadin with INR of 3.3 on admission. Presently unable to swallow medications. -Hold PO Coumadin until taking p.o. -Therapeutic Lovenox once INR subtherapeutic-INR today 2.1 (10) Peripheral vascular disease: Plan: Patient with history of peripheral vascular disease. Extremities presently warm, well perfused with palpable pulses -Hold Plavix and Atorvastatin until patient able to tolerated PO and swallow appropriately (11) Depression: Plan: Chronic -Hold Duloxetine for now until patient able to swallow (12) Hyperlipidemia: Plan: Chronic. dc Atorvastatin to minimize po pills (13) Hypertension: Plan: Blood pressure adequately controlled at present to slightly elevated -Hold Metoprolol and Lisinopril for now until patient able to take PO -Continue to monitor -Can add IV hydralazine as needed (14) Diabetes: Plan: Chronic. With some mild hyperglycemia that is persisting -Lantus 7u qHS -ISS-tighten down correction factor -Goal blood sugar 100 - 140 Check hemoglobin A1c (15) GERD (gastroesophageal reflux disease): Plan: Chronic -Hold PO Protonix from home -Pepcid 20mg IV daily until patient can tolerate PO (16) Hypothyroid: Plan: Chronic -Hold PO Synthroid 50mcg - Will give 25mcg IV daily until patient can tolerate PO TSH checked here is normal (17) Hypokalemia: Plan: Potassium low also due to poor p.o. intake Continue replacement with IV potassium chloride Follow BMP in the morning Replacing magnesium (18) Hypophosphatemia: Plan: replaced and resolved (19) Anemia: Plan: Hemoglobin low at 10.7, normocytic with iron def and severe B12 deficiency on labs here replace with IV Venofer x 3 doses IM B12 1000mcg daily x 3 days No evidence of bleeding from anywhere (20) B12 deficiency anemia: Plan: as above Plan: Ppx -Coumadin as above, switch to Lovenox if still unable to take p.o. once INR is subtherapeutic Code - DNR/DNI per discussion with family Dispo -continued stay, PT/OT evaluation. Goal is for discharge home with additional support as needed after acute issues have been treated. May need Hospice Admission and Anticipated Discharge Date Admission Date: November 09, 2020 Subjective Pt remains nonverbal but her daughter in law is at the bedside and she does follow commands for her. She is frankly aspirating water through a straw, but did swallow applesauce and later coughed for a few minutes. Discussed care at length today with Speech tx, daughter in law twice on phone and once at bedside, as well as with Palliative Medicine Spent total of 75 min of care in prolonged service today Review of Systems Review of Systems: Unobtainable due to cognitive status Physical Exam Constitutional: WD/WN, vitals as above Eyes: + anicteric sclerae Neck: trachea midline, no thyromegaly Respiratory: normal respiratory effort, lungs clear to auscultation Cardiovascular: RRR, no murmur, no edema Chest (Breasts): Chest: normal inspection of chest Gastrointestinal (Abdomen): normal bowel sounds, soft, nontender, no hepatosplenomegaly Musculoskeletal: Extremities: extremities normal to inspection; no cyanosis and no clubbing Skin: no rashes, warm and dry Neurologic: awake; no focal motor deficits (Does move all extremities with passive range of motion against resistance) Speech / Cognition: + expressive aphasia Lymphatic: no lymphedema Results & Data Results & Data ([facility]) Vital Signs (Past 12 Hours) Vital Signs Temp Pulse Resp BP Pulse Ox 11/12/20 15:52 36.7 C 111 H 24 178/77 H 92 11/12/20 07:36 37.1 C 104 H 16 162/81 H 90 Laboratory Results 11/12/20 11/12/20 11/12/20 Range/Units 11:58 09:48 09:48 WBC (4.8-10.8) K/uL RBC (4.2-5.4) M/uL Hgb (12.0-16.0) g/dL Hct (37-47) % MCV (80-100) fL MCH (25-34) pg MCHC (32-36) g/dL RDW Std Deviation (36.4-46.3) fL RDW Coeff of [place] (11.5-14.5) % Plt Count (130-400) K/uL MPV (7.4-10.4) fL Immature Gran % (Auto) % Neut % (Auto) % Lymph % (Auto) % [place] % (Auto) % Eos % (Auto) % Baso % (Auto) % Neut # (Auto) (1.4-6.5) K/uL Lymph # (Auto) (1.2-3.4) K/uL [place] # (Auto) (0.11-0.59) K/uL Eos # (Auto) (0-0.5) K/uL Baso # (Auto) (0-0.2) K/uL Immature Gran # (Auto) (0.00-0.02) K/uL PT 20.5 H (9.0-12.0) Seconds INR 2.1 H (0.9-1.1) Sodium 136 (136-145) mmol/L Potassium 3.3 L (3.5-5.1) mmol/L Chloride 103 (98-107) mmol/L Carbon Dioxide 25 (21-32) mmol/L Anion Gap 8.0 (3-11) BUN 5 L (7-18) mg/dl Creatinine 0.62 (0.6-1.2) mg/dl Est Cr Clr Drug Dosing 54.5 ml/min Est GFR ( Amer) 104.4 ml/min Est GFR (Non-Af Amer) 90.1 ml/min BUN/Creatinine Ratio 7.4 L (10-20) Glucose 164 H (70-99) mg/dl POC Glucose 164 H (70-99) mg/dl Calcium 8.3 L (8.5-10.1) mg/dl Magnesium 1.2 L (1.8-2.4) mg/dl 11/12/20 11/12/20 11/11/20 Range/Units 09:48 05:56 23:33 WBC 6.64 (4.8-10.8) K/uL RBC 3.83 L (4.2-5.4) M/uL Hgb 10.5 L (12.0-16.0) g/dL Hct 32.8 L (37-47) % MCV 85.6 (80-100) fL MCH 27.4 (25-34) pg MCHC 32.0 (32-36) g/dL RDW Std Deviation 49.3 H (36.4-46.3) fL RDW Coeff of [place] 15.8 H (11.5-14.5) % Plt Count 157 (130-400) K/uL MPV 10.7 H (7.4-10.4) fL Immature Gran % (Auto) 0.6 % Neut % (Auto) 71.4 % Lymph % (Auto) 16.0 % [place] % (Auto) 9.2 % Eos % (Auto) 2.6 % Baso % (Auto) 0.2 % Neut # (Auto) 4.75 (1.4-6.5) K/uL Lymph # (Auto) 1.06 L (1.2-3.4) K/uL [place] # (Auto) 0.61 H (0.11-0.59) K/uL Eos # (Auto) 0.17 (0-0.5) K/uL Baso # (Auto) 0.01 (0-0.2) K/uL Immature Gran # (Auto) 0.04 H (0.00-0.02) K/uL PT (9.0-12.0) Seconds INR (0.9-1.1) Sodium (136-145) mmol/L Potassium (3.5-5.1) mmol/L Chloride (98-107) mmol/L Carbon Dioxide (21-32) mmol/L Anion Gap (3-11) BUN (7-18) mg/dl Creatinine (0.6-1.2) mg/dl Est Cr Clr Drug Dosing ml/min Est GFR ( Amer) ml/min Est GFR (Non-Af Amer) ml/min BUN/Creatinine Ratio (10-20) Glucose (70-99) mg/dl POC Glucose 160 H 199 H (70-99) mg/dl Calcium (8.5-10.1) mg/dl Magnesium (1.8-2.4) mg/dl PG Care Time/CCT Total # of Minutes Spent Total Time Spent with Patient: Total time spent is greater than 50% in coordination of care (as documented) at patient's floor/unit and/or counseling patient: Prolonged Care Time Prolonged Care Time: Yes Total Prolonged Care Time: 70 Coding Level of Care Code 64430 Subseq Hosp Care Lvl 3 (25 - SIGNIFICANT, SEPARATELY IDENTIFIABLE ) Diagnoses Declining functional status R53.81 Dysphagia R13.10 Dementia F03.90 Fecal impaction K56.41 UTI (urinary tract infection) N30.00 Hematuria presence: without hematuria Urinary tract infection type: acute cystitis Hypomagnesemia E83.42 Pancreatic cyst K86.2 VTE (venous thromboembolism) I82.90 Peripheral vascular disease I73.9 Depression F32.9 Hyperlipidemia E78.5 Hypertension I10 Diabetes E11.9 GERD (gastroesophageal reflux disease) K21.9 Hypothyroid E03.9 Hypokalemia E87.6 Hypophosphatemia E83.39 Anemia D64.9 B12 deficiency anemia D51.9 Neurodegenerative disorder G31.9 Additional Codes Prolonged Care Time - Prolonged Care Time: Yes ([id number]) (1) UTI (urinary tract infection) Hematuria presence: without hematuria Urinary tract infection type: acute cystitis Qualified Code(s): N30.00 - Acute cystitis without hematuria
[2020-11-12] MEDS: cefTRIAXone SODIUM 1,000 MG in DEXTROSE 5% 50 ML IV SCH (20:08)
[2020-11-12] MEDS: INSULIN GLARGINE SOLOSTAR 100 UNITS/ML 3 ML PEN SC SCH (20:59)
[2020-11-13] MEDS: INSULIN ASPART 100 UNITS/ML 3 ML PEN SC SCH ×5 (00:13→21:23)
[2020-11-13 01:29] LABS: Rapid Plasma Reagin Nonreactive (Nonreactive)
[2020-11-13] MEDS: LACTATED RINGER'S 1,000 ML IV SCH (02:03)
[2020-11-13 07:16] LABS: BUN Creatinine Ratio 4.6 (10-20); Calcium 8.6 mg/dl (8.5-10.1); Creatinine Clr Calc Pharmacy 56.3 ml/min; Est GFR (African American) 105.5 ml/min; Est GFR (Non-African American) 91.1 ml/min; Magnesium 1.8 mg/dl (1.8-2.4); Potassium 3.6 mmol/L (3.5-5.1)
[2020-11-13 07:19] LABS: Phosphorus 3.7 mg/dl (2.5-4.9)
[2020-11-13] MEDS: FAMOTIDINE 20 MG in SYRINGE 3 ML IV SCH (08:22)
[2020-11-13] MEDS: THIAMINE HCL 200 MG in SODIUM CHLORIDE 0.9% 50 ML IV SCH (08:26)
[2020-11-13] MEDS: CARBIDOPA/LEVODOPA 25/100MG TAB PO SCH ×3 (08:39→20:11)
[2020-11-13] MEDS: DONEPEZIL HCL 10 MG TAB PO SCH (08:39)
[2020-11-13] MEDS: CYANOCOBALAMIN 1000 MCG/ML VIAL IM SCH (08:43)
[2020-11-13] MEDS ORDERED: MAGNESIUM SULFATE / D5W 1 GM/100 ML BAG IV ONE (09:30)
[2020-11-13] MEDS: POTASSIUM CHLORIDE / WTR 10 MEQ/100 ML PLCT IV SCH ×2 (10:01→12:42)
--- NOTE | 2020-11-13 12:38 | Palliative Care Consultation ---
Date of Consultation November 13, 2020 Assessment & Plan (1) Dysphagia: Swallowing study pending. She does seem to respond better to her daughter in law who cares for her and has taken some po for her. She notes that Lynne coughed frequently with sips of liquids. (2) Palliative care encounter: I talked with her daughter in law at bedside. Lynne's son, Magdalena, is her POA. He does have an advance directive but is not clear if it specifies her wishes for artificial feeding. Family has been considering permissive aspiration and focus on comfort but has many questions and is having difficulty with her recent rapid functional decline. We are arranging a family meeting via zoom for tomorrow after swallowing evaluation to address their questions and concerns and discuss goals of care further. (3) Neurodegenerative disorder: (4) B12 deficiency anemia: (5) Diabetes: (6) Declining functional status: History of Present Illness Reason for Consultation: goals of care Requesting Physician: Dr. Martines Attending Physician: Radha Martines MD History of Present Illness 70 yo lady who lives with her son and daughter in law. She had been living in [facility] until about a year ago. She has had progressive functional decline though her daughter in law notes that the decline has been particularly rapid in the last few months. At this time she is nonverbal, bedbound and has had poor po intake. She has had coughing with po intake, particularly thin liquids. She has been pocketing medications. She does open her eyes briefly with stimulation but does not follow commands. She has been evaluated by neurology and is thought to have a nonspecific progressive neurodegenerative disease. Unfortunately, she has not been able to take po medication for treatment. She has also been seen by speech therapy and will be having a swallowing study later today. Allergies Allergy/AdvReac Type Severity Reaction Status Date / Time No Known Drug Allergies Allergy Verified 11/09/20 15:48 Home Medications Medication Instructions Recorded Confirmed Type Lactobacillus 40-Bifidobact 1 cap PO DAILYBB 11/09/20 11/09/20 History 3-S.thermophilus 100 billion cell capsule (Probiotic) atorvastatin 10 mg tablet (Lipitor) 10 mg PO HS 11/09/20 11/09/20 History clopidogrel 75 mg tablet (Plavix) 75 mg PO QAM 11/09/20 11/09/20 History donepezil 5 mg tablet (Aricept) 10 mg PO QAM 11/09/20 11/09/20 History duloxetine 20 mg capsule,delayed 20 mg PO HS 11/09/20 11/09/20 History release (Cymbalta) insulin glargine 100 unit/mL (3 13 unit SUBCUT HS 11/09/20 11/09/20 History mL) subcutaneous pen (Lantus Solostar U-100 Insulin) insulin lispro 100 unit/mL 0 unit SUBCUT AC 11/09/20 11/09/20 History subcutaneous pen (Humalog KwikPen (U-100) Insulin) levothyroxine 50 mcg tablet 50 mcg PO DAILYBB 11/09/20 11/09/20 History (Synthroid) lisinopril 5 mg tablet (Zestril) 5 mg PO QAM 11/09/20 11/09/20 History metformin 1,000 mg tablet 1,000 mg PO BID 11/09/20 11/09/20 History metoprolol tartrate 50 mg tablet 50 mg PO BID 11/09/20 11/09/20 History (Lopressor) hjmofdgufqcy-fgodonjl-qevelb 1 tab PO QAM 11/09/20 11/09/20 History tablet (Multivitamin 50 Plus) nystatin 100,000 unit/gram topical 1 applic TOPICAL DAILY PRN 11/09/20 11/09/20 History powder (Nystop) pantoprazole 40 mg tablet,delayed 40 mg PO DAILYBB 11/09/20 11/09/20 History release (Protonix) warfarin 4 mg tablet (Jantoven) 4 mg PO 4XWK 11/09/20 11/09/20 History warfarin 5 mg tablet (Jantoven) 2.5 mg PO 3XWK 11/09/20 11/09/20 History Patient History Medical History B12 deficiency anemia Dementia Depression Diabetes GERD (gastroesophageal reflux disease) Hyperlipidemia Hypertension Hypothyroid Neurodegenerative disorder Peripheral vascular disease VTE (venous thromboembolism) Surgical History History of hip surgery Family History Other Unknown family medical history Social History Smoking Status: Unknown if ever smoked Tobacco Type: Cigarettes packs per day: 2; Years Smoked: 30; Hx Alcohol Use: No Hx Substance Use: No Communication Ability: Unable Current Living Situation: Family current occupational status: disabled Feels Safe at Home: Yes Assistive Devices: Denture - Upper and Denture - Lower Review of Systems Review of Systems: Unobtainable due to cognitive status [place] Symptom Assessment Scale PainAD 0/3 Dyspnea by observation 0/3 Drowsiness 2/3 Palliative Performance Score 20% Physical Exam Constitutional: + lethargic; no acute distress Respiratory: normal respiratory effort; no labored breathing Gastrointestinal (Abdomen): nontender Neurologic: Speech / Cognition: + abnormal cognition nonverbal, lethargic Results & Data ([facility]) Vital Signs (Past 12 Hours) Vital Signs Temp Pulse Resp BP Pulse Ox 11/13/20 07:37 98.4 F 100 H 16 172/91 H 96 PG Care Time/CCT Total # of Minutes Spent Total Time Spent: 50 Total Time Spent with Patient: Total time spent is greater than 50% in coordination of care (as documented) at patient's floor/unit and/or counseling patient: symptom management, goals of care, advance directive Coding Level of Care Code 84067 Initial Inpt Care Lvl 2 Diagnoses Dysphagia R13.10 Palliative care encounter Z51.5 Neurodegenerative disorder G31.9 B12 deficiency anemia D51.9 Diabetes E11.9 Declining functional status R53.81
--- NOTE | 2020-11-13 14:08 | Fluoroscopy Report ---
FL video swallow HISTORY: r/o aspiration; determine diet TECHNIQUE: Video fluoroscopic evaluation of swallowing was performed in the AP and lateral projection s by the speech pathology staff. The patient is fed nectar-thick and thin liquid barium, a barium coa rick wafer, and barium pudding. FLUOROSCOPY TIME: 3.4 minutes. NUMBER OF FLUOROSCOPY IMAGES: [id number] COMPARISON STUDY: None. FINDINGS: There is disorganized hyoid excursion and epiglottic deflection. Aspiration was seen (image s [id number]). No significant penetration or aspiration identified. Swallowing function is within norm al limits. IMPRESSION: 1. Study is positive for aspiration. 2. Please see the speech pathologist report for detailed findings and recommendations. ACT 112: Negative or not required by law. The above report was generated using voice recognition software. It may contain grammatical, syntax o r spelling errors. Electronically signed by: Connie Guaman DO 11/13/2020 2:07 PM
--- NOTE | 2020-11-13 16:08 | Hospitalist Progress Note ---
Date of Service November 13, 2020 Assessment & Plan (1) Declining functional status: Plan: 70yo female with history of Dementia presenting from home with functional decline. Patient has been declining over the past year with rapid decline over the last 3 months and week. She is presently bed bound, nonverbal. 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 Cause most likely multifactorial - unfortunately may largely be due to progression of underlying dementia but also fecal impaction, UTI, hypokalemia/hypomagnesemia and dehydration may be playing a roll as well. Family is at bedside and provides care for the patient at home. They are willing to continue home care but feel that they may need some additional support equipment and possibly nursing care. TSH normal -RPR negative, Lyme negative, B12 severely low, B1 pending Brain MRI with and without contrast without stroke or mass -Consult neurology appreciated-suspect advanced neurodegenerative disease such as progressive supranuclear palsy, multiple systems atrophy, or atypical Parkinson's -recommends trial of low dose SInemet 25/100mg 1/2 tab po tid Biggest issue is dysphagia-Speech following and now s/p VFSS -showed aspiration with thins but did ok withnectar thick and pudding consistencies -very poor po intake, multiple electrolyte derangements, B12 deficiency -started IV thiamine 200mg daily, B12 IM injections, Fe IV -if not taking ample po, would need hospice as DIL fairly certain pt's advanced directive does not support feeding tube Palliative Consultation requested-plan for family meeting with Zoom call tomorrow (2) Neurodegenerative disorder: Plan: as above -started SINemet 1/2 tab tid and titrate up to 1 tab tid she did finally take two doses today so far so will see if helps (3) Dysphagia: Plan: as above is definitely more willing to eat with DIL present but is aspirating and with dysphagia as above Continue maintenance IV fluids and lyte replacement for now (4) Dementia: Plan: Patient with severe dementia. Question of possible Parkinson's disease given resting tremor and tongue fasciculations previously noted during ENT encounter. Patient is scheduled to see Neurology in December but was started on Aricept several months ago by her new PCP -Continue Aricept if taking pills -Frequent orientation, delirium prevention strategies -Patient is nonverbal and is unable to use call conner -Turn q 2 hours - monitor for skin breakdown -Aspiration precautions -Work-up as above -Consult neurology here as above replacing B12, B1 (5) Fecal impaction: Plan: Fecal impaction noted on CT as well as a large pancreatic cyst noted. Family states patient has not had a BM x 5 days prior to admission Now had a large bowel movement on 11/09 and 11/10 after receiving Dulcolax and soapsuds enema, another one 11/12 and 11/13--> constipation resolved -IVF and electrolyte repletion (6) UTI (urinary tract infection): Plan: Patient afebrile, HD stable, non-toxic in appearance. Unable to endorse symptoms of dysuria, frequency or urgency. Patient is urinary incontinent. UA suggestive of infection. -Follow urine culture-with E. coli resistant to ampicillin, Augmentin, cefazolin, and intermediate resistance to Cipro. Sensitive to ceftriaxone -Continue ceftriaxone 1gm IV daily x 5 day course -today last dose (7) Hypomagnesemia: Plan: Mg = 0.7 on admission and now resolved after multiple days of replacement Most likely from poor PO intake and nutritional decline Replete with IV magnesium sulfate again today -Repeat Mg level in AM (8) Pancreatic cyst: Plan: Incidental finding on imaging. Lipase is WNL. No indication of abdominal tenderness. -Consider additional imaging and GI consultation as an outpatient if family desires (9) VTE (venous thromboembolism): Plan: Patient with history of VTE. She is on Coumadin with INR of 3.3 on admission. Presently unable to swallow medications. -seems to be taking pills today-restart PO Coumadin follow INR in AM no signs of active VTE so no bridging needed in short term (10) Peripheral vascular disease: Plan: Patient with history of peripheral vascular disease. Extremities presently warm, well perfused with palpable pulses -restart Plavix but can dc Atorvastatin given advanced dementia and little benefit in effort to reduce pill burden (11) Depression: Plan: Chronic restart Duloxetine upon discharge (12) Hyperlipidemia: Plan: Chronic. dc Atorvastatin to minimize po pills (13) Hypertension: Plan: Blood pressure elevated -restart Metoprolol and Lisinopril as is taking some po meds now -Continue to monitor -Can add IV hydralazine as needed (14) Diabetes: Plan: Chronic. With some mild hyperglycemia that is persisting -increase Lantus to home dose of 13u qHS -ISS-tighten down correction factor -Goal blood sugar 100 - 140 hemoglobin A1c well controlled at 7.0% (15) GERD (gastroesophageal reflux disease): Plan: Chronic dc IV Pepcid and start Prevacid 15mg solutab to replace Protonix for easier swallow (16) Hypothyroid: Plan: Chronic -restart home po LT4 and dv IV LT4 TSH checked here is normal (17) Hypokalemia: Plan: Potassium low also due to poor p.o. intake-improved after replacement Follow BMP in the morning Replacing magnesium (18) Hypophosphatemia: Plan: replaced and resolved (19) Anemia: Plan: Hemoglobin low at 10.7, normocytic with iron def and severe B12 deficiency on labs here replace with IV Venofer x 3 doses IM B12 1000mcg daily x 3 days No evidence of bleeding from anywhere (20) B12 deficiency anemia: Plan: as above Plan: Ppx -Coumadin as above Code - DNR/DNI per discussion with family Dispo -continued stay, PT/OT evaluation. Goal is for discharge home with additional support as needed after acute issues have been treated. May need Hospice Possible dc to home tomorrow after Palliative meeting Admission and Anticipated Discharge Date Admission Date: November 09, 2020 Subjective Pt remains nonverbal but does track me with her eyes today and seems to blink slowly as if answering "yes" when I ask her questions. She had her video swallow today and aspirated thins but did not aspirate nectar thick. Advanced to pureed diet and nectar thick liquids. Moved her bowels today while sitting in the chair. Review of Systems Review of Systems: Unobtainable due to cognitive status Physical Exam Constitutional: WD/WN, vitals as above Eyes: + anicteric sclerae Neck: trachea midline, no thyromegaly Respiratory: normal respiratory effort, lungs clear to auscultation Cardiovascular: RRR, no murmur, no edema Chest (Breasts): Chest: normal inspection of chest Gastrointestinal (Abdomen): normal bowel sounds, soft, nontender, no hepatosplenomegaly Musculoskeletal: Extremities: extremities normal to inspection; no cyanosis and no clubbing Skin: no rashes, warm and dry Neurologic: awake; no focal motor deficits (Does move all extremities with passive range of motion against resistance) Speech / Cognition: + expressive aphasia Lymphatic: no lymphedema Results & Data Results & Data ([facility]) Vital Signs (Past 12 Hours) Vital Signs Temp Pulse Resp BP Pulse Ox 11/13/20 07:37 36.9 C 100 H 16 172/91 H 96 Laboratory Results 11/13/20 11/13/20 11/13/20 Range/Units 12:03 08:05 06:28 Sodium 136 (136-145) mmol/L Potassium 3.6 (3.5-5.1) mmol/L Chloride 104 (98-107) mmol/L Carbon Dioxide 25 (21-32) mmol/L Anion Gap 7.0 (3-11) BUN 3 L (7-18) mg/dl Creatinine 0.60 (0.6-1.2) mg/dl Est Cr Clr Drug Dosing 56.3 ml/min Est GFR ( Amer) 105.5 ml/min Est GFR (Non-Af Amer) 91.1 ml/min BUN/Creatinine Ratio 4.6 L (10-20) Glucose 156 H (70-99) mg/dl POC Glucose 246 H 162 H (70-99) mg/dl Calcium 8.6 (8.5-10.1) mg/dl Phosphorus 3.7 D (2.5-4.9) mg/dl Magnesium 1.8 (1.8-2.4) mg/dl RPR (Nonreactive) 11/13/20 11/12/20 11/12/20 Range/Units 00:10 20:20 18:02 Sodium (136-145) mmol/L Potassium (3.5-5.1) mmol/L Chloride (98-107) mmol/L Carbon Dioxide (21-32) mmol/L Anion Gap (3-11) BUN (7-18) mg/dl Creatinine (0.6-1.2) mg/dl Est Cr Clr Drug Dosing ml/min Est GFR ( Amer) ml/min Est GFR (Non-Af Amer) ml/min BUN/Creatinine Ratio (10-20) Glucose (70-99) mg/dl POC Glucose 225 H 190 H 209 H (70-99) mg/dl Calcium (8.5-10.1) mg/dl Phosphorus (2.5-4.9) mg/dl Magnesium (1.8-2.4) mg/dl RPR (Nonreactive) 11/11/20 Range/Units 12:53 Sodium (136-145) mmol/L Potassium (3.5-5.1) mmol/L Chloride (98-107) mmol/L Carbon Dioxide (21-32) mmol/L Anion Gap (3-11) BUN (7-18) mg/dl Creatinine (0.6-1.2) mg/dl Est Cr Clr Drug Dosing ml/min Est GFR ( Amer) ml/min Est GFR (Non-Af Amer) ml/min BUN/Creatinine Ratio (10-20) Glucose (70-99) mg/dl POC Glucose (70-99) mg/dl Calcium (8.5-10.1) mg/dl Phosphorus (2.5-4.9) mg/dl Magnesium (1.8-2.4) mg/dl RPR Nonreactive (Nonreactive) PG Care Time/CCT Total # of Minutes Spent Total Time Spent with Patient: Total time spent is greater than 50% in coordination of care (as documented) at patient's floor/unit and/or counseling patient: Coding Level of Care Code 40589 Subseq Hosp Care Lvl 3 Diagnoses Declining functional status R53.81 Neurodegenerative disorder G31.9 Dysphagia R13.10 Dementia F03.90 Fecal impaction K56.41 UTI (urinary tract infection) N30.00 Hematuria presence: without hematuria Urinary tract infection type: acute cystitis Hypomagnesemia E83.42 Pancreatic cyst K86.2 VTE (venous thromboembolism) I82.90 Peripheral vascular disease I73.9 Depression F32.9 Hyperlipidemia E78.5 Hypertension I10 Diabetes E11.9 GERD (gastroesophageal reflux disease) K21.9 Hypothyroid E03.9 Hypokalemia E87.6 Hypophosphatemia E83.39 Anemia D64.9 B12 deficiency anemia D51.9 (1) UTI (urinary tract infection) Hematuria presence: without hematuria Urinary tract infection type: acute cystitis Qualified Code(s): N30.00 - Acute cystitis without hematuria
[2020-11-13] MEDS ORDERED: IRON SUCROSE 300 MG in SODIUM CHLORIDE 0.9% 250 ML IV ONE (16:30)
[2020-11-13] MEDS: WARFARIN SOD 4 MG TAB PO SCH (17:23)
[2020-11-13] MEDS: lisinopril 5 MG TAB PO SCH (17:23)
[2020-11-13] MEDS: METOPROLOL TARTRATE 25 MG TAB PO SCH (17:24)
[2020-11-13] MEDS: cefTRIAXone SODIUM 1,000 MG in DEXTROSE 5% 50 ML IV SCH (18:30)
[2020-11-13] MEDS: INSULIN GLARGINE SOLOSTAR 100 UNITS/ML 3 ML PEN SC SCH (21:24)
[2020-11-14] MEDS: LEVOTHYROXINE SODIUM 50 MCG TABLET PO SCH (05:05)
[2020-11-14] MEDS: LACTATED RINGER'S 1,000 ML IV SCH (08:24)
[2020-11-14] MEDS: INSULIN ASPART 100 UNITS/ML 3 ML PEN SC SCH ×4 (09:19→20:16)
[2020-11-14] MEDS: THIAMINE HCL 200 MG in SODIUM CHLORIDE 0.9% 50 ML IV SCH (09:19)
[2020-11-14] MEDS: METOPROLOL TARTRATE 25 MG TAB PO SCH ×2 (09:20→20:34)
[2020-11-14] MEDS: LANSOPRAZOLE 15 MG SOLTAB PO SCH (09:21)
[2020-11-14] MEDS: CARBIDOPA/LEVODOPA 25/100MG TAB PO SCH ×3 (09:21→20:10)
[2020-11-14] MEDS: DONEPEZIL HCL 10 MG TAB PO SCH (09:21)
[2020-11-14] MEDS: lisinopril 5 MG TAB PO SCH (09:21)
[2020-11-14 09:28] LABS: INR 1.4 (0.9-1.1); Prothrombin Time 13.7 Seconds (9.0-12.0)
[2020-11-14 09:54] LABS: BUN Creatinine Ratio 7.2 (10-20); Calcium 8.3 mg/dl (8.5-10.1); Creatinine Clr Calc Pharmacy 60.4 ml/min; Est GFR (Non-African American) 93.2 ml/min; Magnesium 1.2 mg/dl (1.8-2.4); Potassium 3.2 mmol/L (3.5-5.1)
[2020-11-14 09:58] LABS: Phosphorus 3.7 mg/dl (2.5-4.9)
[2020-11-14] MEDS: MAGNESIUM SULFATE / D5W 1 GM/100 ML BAG IV SCH ×4 (11:33→18:04)
[2020-11-14] MEDS: POTASSIUM CHLORIDE / WTR 10 MEQ/100 ML PLCT IV SCH ×4 (11:33→18:04)
[2020-11-14] MEDS: ENOXAPARIN INJ 40 MG/0.4 ML SYR SQ SCH (12:01)
--- NOTE | 2020-11-14 13:55 | Palliative Care Progress Note ---
Date of Service November 14, 2020 Assessment & Plan (1) Dysphagia: Plan: Video swallowing study yesterday positive for aspiration. Recommendation for nectar thick liquids and puree. She did tolerate po medications yesterday but has not been awake enough today. (2) Palliative care encounter: Plan: I spoke with her sons and daughter in law on conference call by phone. We reviewed swallowing study and her overall condition. Her son, Magdalena, who is her POA, has an advance directive which indicates no life support and no resuscitation though it does not specifically address feeding. They tell me that Lynne had not talked about her wishes other than the advance directive. We discussed their questions about her functional decline which is likely to continue and lead to her dying time. She does do better at home and responds better with her family. They are willing to take her home and care for her but express concern about her dying at home with the grandchildren present. We talked about transition to hospice and social work support through hospice to help them navigate this and potentially transition to SNF. We discussed options for feeding with PEG versus continued feeding per speech recommendations knowing that it is not likely that she will be able to consume adequate nutrition. We discussed the risks and benefits of each, including continued aspiration risk. They do not want PEG tube and will encourage her to eat at home. They will have [facility] Palliative Care support at home with transition to hospice. Discussed with case management and Dr. Martines. (3) Neurodegenerative disorder: (4) Diabetes: (5) Peripheral vascular disease: Admission and Anticipated Discharge Date Admission Date: November 09, 2020 Subjective Does not respond to voice or touch. Not taking po today Review of Systems Review of Systems: Unobtainable due to reduced consciousness [place] Symptom Assessment Scale PainAD 0/3 Dyspnea by observation 0/3 Palliative Performance Score 20% Physical Exam Constitutional: + lethargic; no acute distress Respiratory: normal respiratory effort; no labored breathing Musculoskeletal: Extremities: + muscle atrophy Results & Data ([facility]) Vital Signs (Past 12 Hours) Vital Signs Temp Pulse Resp BP Pulse Ox 11/14/20 07:40 97.7 F 57 L 18 154/72 H 97 11/14/20 07:35 98.2 F 75 18 151/77 H 99 PG Care Time/CCT Total # of Minutes Spent Total Time Spent: 45 Total Time Spent with Patient: Total time spent is greater than 50% in coordination of care (as documented) at patient's floor/unit and/or counseling patient: goals of care, artificial feeding, prognosis, hospice Coding Level of Care Code 37672 Subseq Hosp Care Lvl 3 Diagnoses Dysphagia R13.10 Palliative care encounter Z51.5 Neurodegenerative disorder G31.9 Diabetes E11.9 Peripheral vascular disease I73.9
--- NOTE | 2020-11-14 14:23 | Hospitalist Progress Note ---
Date of Service November 14, 2020 Assessment & Plan (1) Declining functional status: Plan: 70yo female with history of Dementia presenting from home with functional decline. Patient has been declining over the past year with rapid decline over the last 3 months and week. She is presently bed bound, nonverbal. 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 Cause most likely multifactorial - unfortunately may largely be due to progression of underlying dementia but also fecal impaction, UTI, hypokalemia/hypomagnesemia and dehydration may be playing a roll as well. Family is at bedside and provides care for the patient at home. They are willing to continue home care but feel that they may need some additional support equipment and possibly nursing care. TSH normal -RPR negative, Lyme negative, B12 severely low, B1 pending Brain MRI with and without contrast without stroke or mass -Consult neurology appreciated-suspect advanced neurodegenerative disease such as progressive supranuclear palsy, multiple systems atrophy, or atypical Parkinson's -recommends trial of low dose SInemet 25/100mg 1/2 tab po tid Biggest issue is dysphagia-Speech following and now s/p VFSS -showed aspiration with thins but did ok with nectar thick and pudding consistencies -very poor po intake, multiple electrolyte derangements, B12 deficiency -started IV thiamine 200mg daily, B12 IM injections, Fe IV-recommend continuation of p.o. thiamine and B12 upon discharge -if not taking ample po, would need hospice as DIL fairly certain pt's advanced directive does not support feeding tube Palliative Consultation requested-appreciate consultation. Family meeting was held and family agreed that patient would not want a feeding tube and they will continue to encourage her to eat at home, and start palliative home care with transition to hospice if continues to decline after discharge. -Would attempt to minimize p.o. medications upon discharge (2) Neurodegenerative disorder: Plan: as above -started SINemet 1/2 tab tid and titrate up to 1 tab tid (3) Dysphagia: Plan: as above is definitely more willing to eat with DIL present but is aspirating and with dysphagia as above Continue maintenance IV fluids and lyte replacement for now, but expect that when she returns home and is continuing to not eat or receive IV fluids she may decline faster (4) Dementia: Plan: Patient with severe dementia. Question of possible Parkinson's disease given resting tremor and tongue fasciculations previously noted during ENT encounter. Patient is scheduled to see Neurology in December but was started on Aricept several months ago by her new PCP -Continue Aricept if able to take pills -Frequent orientation, delirium prevention strategies -Patient is nonverbal and is unable to use call conner -Turn q 2 hours - monitor for skin breakdown -Aspiration precautions -Work-up as above -Consult neurology here as above replacing B12, B1 (5) Fecal impaction: Plan: Fecal impaction noted on CT as well as a large pancreatic cyst noted. Family states patient has not had a BM x 5 days prior to admission Now had a large bowel movement on 11/09 and 11/10 after receiving Dulcolax and soapsuds enema, another one 11/12 and 11/13--> constipation resolved -IVF and electrolyte repletion (6) UTI (urinary tract infection): Plan: Patient afebrile, HD stable, non-toxic in appearance. Unable to endorse symptoms of dysuria, frequency or urgency. Patient is urinary incontinent. UA suggestive of infection. -Follow urine culture-with E. coli resistant to ampicillin, Augmentin, cefazolin, and intermediate resistance to Cipro. Sensitive to ceftriaxone -Completed a 5-day course of ceftriaxone 1gm IV daily (7) Hypomagnesemia: Plan: Mg = 0.7 on admission and continues to be severely low despite multiple days of replacement Most likely from poor PO intake and nutritional decline Replete with IV magnesium sulfate again today x4 g -Repeat Mg level in AM (8) Pancreatic cyst: Plan: Incidental finding on imaging. Lipase is WNL. No indication of abdominal tenderness. -Consider additional imaging and GI consultation as an outpatient if family desires (9) VTE (venous thromboembolism): Plan: Patient with history of VTE. She is on Coumadin with INR of 3.3 on admission. Presently unable to swallow medications. -seems to be taking pills intermittently and have since restarted PO Coumadin INR now low at 1.4 no signs of active VTE so no therapeutic bridging needed in short term, but will start Lovenox 40 mg SQ once daily Follow INR in the morning (10) Peripheral vascular disease: Plan: Patient with history of peripheral vascular disease. Extremities presently warm, well perfused with palpable pulses -Continue Plavix but can dc Atorvastatin given advanced dementia and little benefit in effort to reduce pill burden (11) Depression: Plan: Chronic restart Duloxetine upon discharge if desired but can discontinue in an effort to reduce pill burden (12) Hyperlipidemia: Plan: Chronic. dc Atorvastatin to minimize po pills (13) Hypertension: Plan: Blood pressure elevated -restarted Metoprolol and Lisinopril and this is improving -Continue to monitor (14) Diabetes: Plan: Chronic. With some mild hyperglycemia that is persisting but overall improving -Continue Lantus home dose of 13u qHS -ISS-tighten down correction factor again today to 20 -Goal blood sugar 100 - 140 hemoglobin A1c well controlled at 7.0% (15) GERD (gastroesophageal reflux disease): Plan: Chronic Discontinue home Protonix and start Prevacid 15mg solutab to replace Protonix for easier swallow (16) Hypothyroid: Plan: Chronic -Continue p.o. levothyroxine TSH checked here is normal (17) Hypokalemia: Plan: Potassium low also due to poor p.o. intake-persists today but is improving Follow BMP in the morning Replacing magnesium as well as above (18) Hypophosphatemia: Plan: replaced and resolved (19) Anemia: Plan: Hemoglobin low at 10.7, normocytic with iron def and severe B12 deficiency on labs here replace with IV Venofer x 3 doses IM B12 1000mcg daily x 3 days No evidence of bleeding from anywhere (20) B12 deficiency anemia: Plan: as above Plan: Ppx -Coumadin as above Code - DNR/DNI per discussion with family Dispo -had lengthy discussion with caregiver/[id number] and patient's son on the phone on the evening of 11/14. They met with palliative care today and decision was made to forego any artificial feeding. Plan to return home with palliative home care with transition to hospice if continues to decline. The [id number] has questions about how to obtain thickeners for the nectar thick liquids prior to discharge. She would also like to come in on Tuesday morning and make sure that the patient is strong enough to do her usual transfers from bed to chair so she feels more comfortable transporting her to home. Otherwise, she would need transportation set up. However, family feels they will be ready to bring her home till Tuesday Admission and Anticipated Discharge Date Admission Date: November 09, 2020 Anticipated date of discharge: 11/16/20 Subjective Patient nonverbal. Had a bowel movement. She will not take any pills or eat for the nurses this morning. Review of Systems Review of Systems: Unobtainable due to cognitive status Physical Exam Constitutional: WD/WN, vitals as above Eyes: + anicteric sclerae Neck: trachea midline, no thyromegaly Respiratory: normal respiratory effort Musculoskeletal: Extremities: no cyanosis and no clubbing Skin: + rash (faint erythematous lacy macular rash over trunk and bottom) Neurologic: awake; no focal motor deficits (Does move all extremities with passive range of motion against resistance) Speech / Cognition: + expressive aphasia Lymphatic: no lymphedema Results & Data Results & Data ([facility]) Vital Signs (Past 12 Hours) Vital Signs Temp Pulse Resp BP Pulse Ox 11/14/20 07:40 36.5 C 57 L 18 154/72 H 97 11/14/20 07:35 36.8 C 75 18 151/77 H 99 Laboratory Results 11/14/20 11/14/20 11/14/20 Range/Units 20:10 17:06 11:53 PT (9.0-12.0) Seconds INR (0.9-1.1) Sodium (136-145) mmol/L Potassium (3.5-5.1) mmol/L Chloride (98-107) mmol/L Carbon Dioxide (21-32) mmol/L Anion Gap (3-11) BUN (7-18) mg/dl Creatinine (0.6-1.2) mg/dl Est Cr Clr Drug Dosing ml/min Est GFR ( Amer) ml/min Est GFR (Non-Af Amer) ml/min BUN/Creatinine Ratio (10-20) Glucose (70-99) mg/dl POC Glucose 230 H 168 H 144 H (70-99) mg/dl Calcium (8.5-10.1) mg/dl Phosphorus (2.5-4.9) mg/dl Magnesium (1.8-2.4) mg/dl 11/14/20 11/14/20 11/14/20 Range/Units 08:33 08:33 08:26 PT 13.7 H (9.0-12.0) Seconds INR 1.4 H (0.9-1.1) Sodium 139 (136-145) mmol/L Potassium 3.2 L (3.5-5.1) mmol/L Chloride 105 (98-107) mmol/L Carbon Dioxide 29 (21-32) mmol/L Anion Gap 5.0 (3-11) BUN 4 L (7-18) mg/dl Creatinine 0.56 L (0.6-1.2) mg/dl Est Cr Clr Drug Dosing 60.4 ml/min Est GFR ( Amer) 108.0 ml/min Est GFR (Non-Af Amer) 93.2 ml/min BUN/Creatinine Ratio 7.2 L (10-20) Glucose 140 H (70-99) mg/dl POC Glucose 131 H (70-99) mg/dl Calcium 8.3 L (8.5-10.1) mg/dl Phosphorus 3.7 (2.5-4.9) mg/dl Magnesium 1.2 L (1.8-2.4) mg/dl PG Care Time/CCT Total # of Minutes Spent Total Time Spent with Patient: Total time spent is greater than 50% in coordination of care (as documented) at patient's floor/unit and/or counseling patient: Coding Level of Care Code 29471 Subseq Hosp Care Lvl 2 Diagnoses Declining functional status R53.81 Neurodegenerative disorder G31.9 Dysphagia R13.10 Dementia F03.90 Fecal impaction K56.41 UTI (urinary tract infection) N30.00 Hematuria presence: without hematuria Urinary tract infection type: acute cystitis Hypomagnesemia E83.42 Pancreatic cyst K86.2 VTE (venous thromboembolism) I82.90 Peripheral vascular disease I73.9 Depression F32.9 Hyperlipidemia E78.5 Hypertension I10 Diabetes E11.9 GERD (gastroesophageal reflux disease) K21.9 Hypothyroid E03.9 Hypokalemia E87.6 Hypophosphatemia E83.39 Anemia D64.9 B12 deficiency anemia D51.9 (1) UTI (urinary tract infection) Hematuria presence: without hematuria Urinary tract infection type: acute cystitis Qualified Code(s): N30.00 - Acute cystitis without hematuria
[2020-11-14] MEDS: WARFARIN SOD 4 MG TAB PO SCH (16:07)
[2020-11-14] MEDS: cefTRIAXone SODIUM 1,000 MG in DEXTROSE 5% 50 ML IV SCH (20:09)
[2020-11-14] MEDS: INSULIN GLARGINE SOLOSTAR 100 UNITS/ML 3 ML PEN SC SCH (20:17)
[2020-11-15] MEDS: LACTATED RINGER'S 1,000 ML IV SCH ×2 (06:28→12:52)
[2020-11-15] MEDS: LEVOTHYROXINE SODIUM 50 MCG TABLET PO SCH (06:28)
[2020-11-15] MEDS: ENOXAPARIN INJ 40 MG/0.4 ML SYR SQ SCH (08:42)
[2020-11-15] MEDS: THIAMINE HCL 200 MG in SODIUM CHLORIDE 0.9% 50 ML IV SCH (08:45)
[2020-11-15] MEDS: LANSOPRAZOLE 15 MG SOLTAB PO SCH (09:05)
[2020-11-15] MEDS: DONEPEZIL HCL 10 MG TAB PO SCH (09:06)
[2020-11-15] MEDS: METOPROLOL TARTRATE 25 MG TAB PO SCH ×2 (09:06→20:24)
[2020-11-15] MEDS: CARBIDOPA/LEVODOPA 25/100MG TAB PO SCH ×4 (09:07→20:51)
[2020-11-15] MEDS: lisinopril 5 MG TAB PO SCH (09:07)
[2020-11-15] MEDS: INSULIN ASPART 100 UNITS/ML 3 ML PEN SC SCH ×4 (09:11→20:41)
--- NOTE | 2020-11-15 13:07 | Hospitalist Progress Note ---
Date of Service November 15, 2020 Assessment & Plan (1) Declining functional status: Plan: 70yo female with history of Dementia presenting from home with functional decline. Patient has been declining over the past year with rapid decline over the last 3 months and week. She is presently bed bound, nonverbal. 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 Cause most likely multifactorial - unfortunately may largely be due to progression of underlying dementia but also fecal impaction, UTI, hypokalemia/hypomagnesemia and dehydration may be playing a roll as well. Family is at bedside and provides care for the patient at home. They are willing to continue home care but feel that they may need some additional support equipment and possibly nursing care. TSH normal -RPR negative, Lyme negative, B12 severely low, B1 pending Brain MRI with and without contrast without stroke or mass -Consult neurology appreciated-suspect advanced neurodegenerative disease such as progressive supranuclear palsy, multiple systems atrophy, or atypical Parkinson's -Started trial of low dose sinemet 25/100mg 1/2 tab po tid, will increase to 1 tab TID per recommendations of uptitration Biggest issue is dysphagia-Speech following and now s/p VFSS -showed aspiration with thins but did ok with nectar thick and pudding consistencies -very poor po intake, multiple electrolyte derangements, B12 deficiency -to minimize medications will discontinue thiamine at this stage given unlikely benefit from this. -if not taking ample po, would need hospice as DIL fairly certain pt's advanced directive does not support feeding tube Palliative Consultation requested-appreciate consultation. Family meeting was held and family agreed that patient would not want a feeding tube and they will continue to encourage her to eat at home, and start palliative home care with transition to hospice if continues to decline after discharge. -Would attempt to minimize p.o. medications upon discharge (2) Neurodegenerative disorder: Plan: as above -started SINemet 1/2 tab tid and titrate up to 1 tab tid - will give cyanocobalamin for a further 2 days given severity of deicifiency. (3) Dysphagia: Plan: as above is definitely more willing to eat with DIL present but is aspirating and with dysphagia as above Continue maintenance IV fluids and lyte replacement for now, but expect that when she returns home and is continuing to not eat or receive IV fluids she may decline faster (4) Dementia: Plan: Patient with severe dementia. Question of possible Parkinson's disease given resting tremor and tongue fasciculations previously noted during ENT encounter. Patient is scheduled to see Neurology in December but was started on Aricept several months ago by her new PCP -Continue Aricept if able to take pills -Frequent orientation, delirium prevention strategies -Patient is nonverbal and is unable to use call conner -Turn q 2 hours - monitor for skin breakdown -Aspiration precautions -Work-up as above -Consult neurology here as above replacing B12, B1 (5) Fecal impaction: Plan: Fecal impaction noted on CT as well as a large pancreatic cyst noted. Family states patient has not had a BM x 5 days prior to admission Now had a large bowel movement on 11/09 and 11/10 after receiving Dulcolax and soapsuds enema, another one 11/12 and 11/13--> constipation resolved -IVF and electrolyte repletion (6) UTI (urinary tract infection): Plan: Patient afebrile, HD stable, non-toxic in appearance. Unable to endorse symptoms of dysuria, frequency or urgency. Patient is urinary incontinent. UA suggestive of infection. -Follow urine culture-with E. coli resistant to ampicillin, Augmentin, cefazolin, and intermediate resistance to Cipro. Sensitive to ceftriaxone -Completed a 5-day course of ceftriaxone 1gm IV daily (7) Hypomagnesemia: Plan: Mg = 0.7 on admission and continues to be severely low despite multiple days of replacement Most likely from poor PO intake and nutritional decline Replete with IV magnesium sulfate again today x4 g -Repeat Mg level in AM (8) Pancreatic cyst: Plan: Incidental finding on imaging. Lipase is WNL. No indication of abdominal tenderness. -Consider additional imaging and GI consultation as an outpatient if family desires (9) VTE (venous thromboembolism): Plan: Patient with history of VTE. She is on Coumadin with INR of 3.3 on admission. Presently unable to swallow medications. -seems to be taking pills intermittently and have since restarted PO Coumadin INR now low at 1.4 no signs of active VTE so no therapeutic bridging needed in short term, but will start Lovenox 40 mg SQ once daily Follow INR in the morning (10) Peripheral vascular disease: Plan: Patient with history of peripheral vascular disease. Extremities presently warm, well perfused with palpable pulses -Continue Plavix but can dc Atorvastatin given advanced dementia and little benefit in effort to reduce pill burden (11) Depression: Plan: Chronic restart Duloxetine upon discharge if desired but can discontinue in an effort to reduce pill burden (12) Hyperlipidemia: Plan: Chronic. dc Atorvastatin to minimize po pills (13) Hypertension: Plan: Blood pressure elevated -restarted Metoprolol and Lisinopril and this is improving -Continue to monitor (14) Diabetes: Plan: Chronic. With some mild hyperglycemia that is persisting but overall improving -Continue Lantus home dose of 13u qHS -ISS-tighten down correction factor again today to 20 -Goal blood sugar 100 - 140 hemoglobin A1c well controlled at 7.0% (15) GERD (gastroesophageal reflux disease): Plan: Chronic Discontinue home Protonix and start Prevacid 15mg solutab to replace Protonix for easier swallow (16) Hypothyroid: Plan: Chronic -Continue p.o. levothyroxine TSH checked here is normal (17) Hypokalemia: Plan: Potassium low also due to poor p.o. intake-persists today but is improving Follow BMP in the morning Replacing magnesium as well as above (18) Hypophosphatemia: Plan: replaced and resolved (19) Anemia: Plan: Hemoglobin low at 10.7, normocytic with iron def and severe B12 deficiency on labs here replace with IV Venofer x 3 doses IM B12 1000mcg daily x 3 days No evidence of bleeding from anywhere (20) B12 deficiency anemia: Plan: as above Plan: Ppx -Coumadin as above Code - DNR/DNI per discussion with family Dispo -had lengthy discussion with caregiver/[id number] and patient's son on the phone on the evening of 11/14. They met with palliative care today and decision was made to forego any artificial feeding. Plan to return home with palliative home care with transition to hospice if continues to decline. The [id number] has questions about how to obtain thickeners for the nectar thick liquids prior to discharge. She would also like to come in on Tuesday morning and make sure that the patient is strong enough to do her usual transfers from bed to chair so she feels more comfortable transporting her to home. Otherwise, she would need transportation set up. However, family feels they will be ready to bring her home till Tuesday Admission and Anticipated Discharge Date Admission Date: November 09, 2020 Subjective Patient nonverbal. Review of Systems Review of Systems: Unobtainable due to cognitive status Physical Exam Constitutional: + not well nourished and no acute distress Eyes: + anicteric sclerae; normal pupil size ENMT: Mouth: + dry oral mucous membranes Neck: trachea midline, no thyromegaly Respiratory: normal respiratory effort Auscultation: + breath sounds absent (bibasal) and + diminished lung sounds (throughout) Cardiovascular: Rate/Rhythm: regular rate and regular rhythm Heart Sounds: no murmur Extremities: normal capillary refill; no pedal edema Gastrointestinal (Abdomen): Inspection/Auscultation: normal bowel sounds Percussion/Palpation: abdomen soft; abdomen nontender Skin: + rash (faint erythematous lacy macular rash over trunk and bottom) Neurologic: awake; no focal motor deficits (Does move all extremities with passive range of motion against resistance) Motor/Sensory: + tremor (RUE resting) Psychiatric: Orientation: alert; + not oriented x 3 Results & Data Results & Data ([facility]) Vital Signs (Past 12 Hours) Vital Signs Temp Pulse Resp BP Pulse Ox 11/15/20 07:30 36.4 C L 86 18 164/96 H 96 PG Care Time/CCT Total # of Minutes Spent Total Time Spent with Patient: Total time spent is greater than 50% in coordination of care (as documented) at patient's floor/unit and/or counseling patient: Coding Diagnoses Declining functional status R53.81 Neurodegenerative disorder G31.9 Dysphagia R13.10 Dementia F03.90 Fecal impaction K56.41 UTI (urinary tract infection) N30.00 Hematuria presence: without hematuria Urinary tract infection type: acute cystitis Hypomagnesemia E83.42 Pancreatic cyst K86.2 VTE (venous thromboembolism) I82.90 Peripheral vascular disease I73.9 Depression F32.9 Hyperlipidemia E78.5 Hypertension I10 Diabetes E11.9 GERD (gastroesophageal reflux disease) K21.9 Hypothyroid E03.9 Hypokalemia E87.6 Hypophosphatemia E83.39 Anemia D64.9 B12 deficiency anemia D51.9 (1) UTI (urinary tract infection) Hematuria presence: without hematuria Urinary tract infection type: acute cystitis Qualified Code(s): N30.00 - Acute cystitis without hematuria
[2020-11-15] MEDS: WARFARIN SOD 4 MG TAB PO SCH (17:45)
[2020-11-15] MEDS: INSULIN GLARGINE SOLOSTAR 100 UNITS/ML 3 ML PEN SC SCH (20:41)
[2020-11-16] MEDS: LEVOTHYROXINE SODIUM 50 MCG TABLET PO SCH (05:46)
[2020-11-16] MEDS: LACTATED RINGER'S 1,000 ML IV SCH (06:15)
[2020-11-16] MEDS ORDERED: CYANOCOBALAMIN 1000 MCG/ML VIAL IM SCH (09:00)
[2020-11-16] MEDS ORDERED: THIAMINE HCL 100 MG in SYRINGE 9 ML IV SCH (09:00)
[2020-11-16] MEDS: INSULIN ASPART 100 UNITS/ML 3 ML PEN SC SCH ×2 (09:04→12:58)
[2020-11-16] MEDS: CARBIDOPA/LEVODOPA 25/100MG TAB PO SCH (09:06)
[2020-11-16] MEDS: lisinopril 5 MG TAB PO SCH (09:06)
[2020-11-16] MEDS: LANSOPRAZOLE 15 MG SOLTAB PO SCH ×2 (09:06→09:13)
[2020-11-16] MEDS: METOPROLOL TARTRATE 25 MG TAB PO SCH (09:06)
[2020-11-16] MEDS: DONEPEZIL HCL 10 MG TAB PO SCH (09:06)
[2020-11-16] MEDS: ENOXAPARIN INJ 40 MG/0.4 ML SYR SQ SCH (09:07)
[2020-11-16 12:46] LABS: INR 1.5 (0.9-1.1); Prothrombin Time 14.5 Seconds (9.0-12.0)
[2020-11-16 12:54] LABS: BUN Creatinine Ratio 6.1 (10-20); Creatinine Clr Calc Pharmacy 62.6 ml/min; Est GFR (African American) 109.3 ml/min; Est GFR (Non-African American) 94.3 ml/min; Potassium 3.8 mmol/L (3.5-5.1)
--- NOTE | 2020-11-16 13:13 | Discharge Summary ---
Date of Service November 16, 2020 Admission HPI Per Admitting Provider Lynne Joyner is a 70yo female presenting with adult failure to thrive. Patient is nonverbal due to underlying dementia as well as infection and is unable to provide details of history. History obtained through discussion with ER team, chart review and discussion with family at bedside. Patient's daughter is a AUTOMATIC GRINDING MACHINE OPERATOR with years of [employer] experience. She provides ongoing care for her mother at home. Patient moved from [place] to live with family due to her functional decline. Family then moved into a new home that was more equipped for the patient - wheelchair ramp, etc. Daughter states that one year ago her mother was fairly interactive and verbal and mostly continent. She was wheelchair bound and required 1-person assist with transfers. She has had fairly significant decline over the last 6 months, most notable over the last 3 months. She is now mostly non-verbal, bed bound and incontinent. Over the last week she has been having decreased oral intake. She last took her pills on 11/06/20 - since then she has been holding them in her cheeks. She had several episodes of vomiting yesterday - daughter reports the first episode was a large emesis consisting mostly of clear phlegm. She then had two smaller episodes of liquid vomit - no blood or bile reported. This AM she was able to eat breakfast but did not take her medications which is why family brought her in. Patient was seen by ENT on 10/28/20 with progressive dysphagia to solids and liquids. She had a flexible laryngoscopy performed without evidence of mass or lesion - she had normal vocal fold mobility. A pill-rolling tremor and tongue fasciculations were noted and patient was referred to Neurology to assess for possible Parkinson's Disease. A modified barium swallow was ordered and is to be performed this week on Tuesday. No additional complaints. No BM x 5 days. ER Course: Ceftriaxone, Mg x 1 gm, NSS at 125mL/hr Discharge Data Allergies Allergy/AdvReac Type Severity Reaction Status Date / Time No Known Drug Allergies Allergy Verified 11/09/20 15:48 Consultations 11/09/20 19:28 ED Decision to Admit Stat 11/11/20 12:34 Consult Neurology Routine 11/12/20 09:43 Consult Palliative Care Routine Ordered Studies 11/09/20 15:38 CT head/brain wo con Stat 11/09/20 18:10 CT abd pelvis IV con only Stat 11/11/20 12:42 MR brain wo/w con Urgent 11/13/20 13:15 FL video swallow Routine Hospital Course (1) Declining functional status: 70yo female with history of Dementia presenting from home with functional decline. Patient has been declining over the past year with rapid decline over the last 3 months and week. She is presently bed bound, nonverbal. 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 Cause most likely multifactorial - unfortunately may largely be due to progression of underlying dementia but also fecal impaction, UTI, hypokalemia/hypomagnesemia and dehydration may be playing a roll as well. Family is at bedside and provides care for the patient at home. They are willing to continue home care but feel that they may need some additional support equipment and possibly nursing care. TSH normal -RPR negative, Lyme negative, B12 severely low, B1 pending Brain MRI with and without contrast without stroke or mass -Consult neurology appreciated-suspect advanced neurodegenerative disease such as progressive supranuclear palsy, multiple systems atrophy, or atypical Parkinson's -Started trial of low dose sinemet 25/100mg 1/2 tab po tid, will increase to 1 tab TID per recommendations of uptitration Biggest issue is dysphagia-Speech following and now s/p VFSS -showed aspiration with thins but did ok with nectar thick and pudding consistencies -very poor po intake, multiple electrolyte derangements, B12 deficiency -to minimize medications will discontinue thiamine at this stage given unlikely benefit from this. -if not taking ample po, would need hospice as DIL fairly certain pt's advanced directive does not support feeding tube Palliative Consultation requested-appreciate consultation. Family meeting was held and family agreed that patient would not want a feeding tube and they will continue to encourage her to eat at home, and start palliative home care with transition to hospice if continues to decline after discharge. -Would attempt to minimize p.o. medications upon discharge (2) Neurodegenerative disorder: as above -started SINemet 1/2 tab tid and titrate up to 1 tab tid - will give cyanocobalamin for a further 2 days given severity of deicifiency. (3) Dysphagia: as above is definitely more willing to eat with DIL present but is aspirating and with dysphagia as above Continue maintenance IV fluids and lyte replacement for now, but expect that when she returns home and is continuing to not eat or receive IV fluids she may decline faster (4) Dementia: Patient with severe dementia. Question of possible Parkinson's disease given resting tremor and tongue fasciculations previously noted during ENT encounter. Patient is scheduled to see Neurology in December but was started on Aricept several months ago by her new PCP -Continue Aricept if able to take pills -Frequent orientation, delirium prevention strategies -Patient is nonverbal and is unable to use call conner -Turn q 2 hours - monitor for skin breakdown -Aspiration precautions -Work-up as above -Consult neurology here as above replacing B12, B1 (5) Fecal impaction: Fecal impaction noted on CT as well as a large pancreatic cyst noted. Family states patient has not had a BM x 5 days prior to admission Now had a large bowel movement on 11/09 and 11/10 after receiving Dulcolax and soapsuds enema, another one 11/12 and 11/13--> constipation resolved -IVF and electrolyte repletion (6) UTI (urinary tract infection): Patient afebrile, HD stable, non-toxic in appearance. Unable to endorse symptoms of dysuria, frequency or urgency. Patient is urinary incontinent. UA suggestive of infection. -Follow urine culture-with E. coli resistant to ampicillin, Augmentin, cefazolin, and intermediate resistance to Cipro. Sensitive to ceftriaxone -Completed a 5-day course of ceftriaxone 1gm IV daily (7) Hypomagnesemia: Mg = 0.7 on admission and continues to be severely low despite multiple days of replacement Most likely from poor PO intake and nutritional decline Replete with IV magnesium sulfate again today x4 g -Repeat Mg level in AM (8) Pancreatic cyst: Incidental finding on imaging. Lipase is WNL. No indication of abdominal tenderness. -Consider additional imaging and GI consultation as an outpatient if family desires (9) VTE (venous thromboembolism): Patient with history of VTE. She is on Coumadin with INR of 3.3 on admission. Presently unable to swallow medications. -seems to be taking pills intermittently and have since restarted PO Coumadin INR now low at 1.4 no signs of active VTE so no therapeutic bridging needed in short term, but will start Lovenox 40 mg SQ once daily Follow INR in the morning (10) Peripheral vascular disease: Patient with history of peripheral vascular disease. Extremities presently warm, well perfused with palpable pulses -Continue Plavix but can dc Atorvastatin given advanced dementia and little benefit in effort to reduce pill burden (11) Depression: Chronic restart Duloxetine upon discharge if desired but can discontinue in an effort to reduce pill burden (12) Hyperlipidemia: Chronic. dc Atorvastatin to minimize po pills (13) Hypertension: Blood pressure elevated -restarted Metoprolol and Lisinopril and this is improving -Continue to monitor (14) Diabetes: Chronic. With some mild hyperglycemia that is persisting but overall improving -Continue Lantus home dose of 13u qHS -ISS-tighten down correction factor again today to 20 -Goal blood sugar 100 - 140 hemoglobin A1c well controlled at 7.0% (15) GERD (gastroesophageal reflux disease): Chronic Discontinue home Protonix and start Prevacid 15mg solutab to replace Protonix for easier swallow (16) Hypothyroid: Chronic -Continue p.o. levothyroxine TSH checked here is normal (17) Hypokalemia: Potassium low also due to poor p.o. intake-persists today but is improving Follow BMP in the morning Replacing magnesium as well as above (18) Hypophosphatemia: replaced and resolved (19) Anemia: Hemoglobin low at 10.7, normocytic with iron def and severe B12 deficiency on labs here replace with IV Venofer x 3 doses IM B12 1000mcg daily x 3 days No evidence of bleeding from anywhere (20) B12 deficiency anemia: as above Ppx -Coumadin as above Code - DNR/DNI per discussion with family Dispo -had lengthy discussion with caregiver/[id number]-[id number]-bwd and patient's son on the phone on the evening of 11/14. They met with palliative care today and decision was made to forego any artificial feeding. Plan to return home with palliative home care with transition to hospice if continues to decline. The [id number] has questions about how to obtain thickeners for the nectar thick liquids prior to discharge. She would also like to come in on Tuesday morning and make sure that the patient is strong enough to do her usual transfers from bed to chair so she feels more comfortable transporting her to home. Otherwise, she would need transportation set up. However, family feels they will be ready to bring her home till Tuesday Discharge Plan Discharge Items Patient Disposition: Home - Self-Care Reason For Visit: FUNCTIONAL DECLINE Discharge Diagnosis: Severe B12 deficiency Advanced neurodegenerative disease Fecal impaction Urine tract infection Activity: Resume your previous activity Non-emergency contact: Primary Care Provider Call non-emergency contact if: you have any medication questions and your symptoms worsen Follow-up/Referrals: Alan Beverly MD [Physician] - (4-6 weeks follow up after discharge) Jamir Fowler DO [Primary Care Provider] - Diet: Carb Consistent or DM2 Diet Texture: Pureed (blended smooth) Liquid Consistency: [place] thick Addtl Attending Provider Instructions: You were [facility] to [facility] from November 09 - November 16, 2020 due to functional decline. This is likely multifactorial due to neurodegenerative disease, low magnesium levels, severe B12 deficiency, possible urine tract infection and fecal impaction (severe constipation). These were treated with: Neurodegenerative disease - reviewed by neurology and recommended starting on Simemet for possible Parkinson's/progressive supranuclear palsy, please follow up neurology as above. Urine tract infection - intravenous antibiotics given during your inpatient stay, discontinued on discharge Severe B12 deficiency - started ON B12 intramuscular injection. Will continue weekly as outpatient and follow up with your primary care provider to organize ongoing prescriptions as needed (usually monthly) Progressive dysphagia (difficulty swallowing) - speech and language therapy seen and you underwent video swallow. Recommend pureed diet with nectar thick liquids. Please see additional SLT discharge instructions for further details to try and avoid aspirations. Fecal impaction - recommend continuing laxatives (recommend MiraLAX) as needed to aim for one bowel movement a day. This was treated with an enema during her hospital stay. Low magnesium - treated with supplementation during your inpatient stay and will be continued on discharge. With regards to your INR. This is 1.5 on discharge. Recommend continuing on your usual warfarin dosing and following up with repeat INR testing next week. Kind regards, Dr Calin Bui Pending Studies at Discharge: No Stand-Alone Forms: [facility], Smoking Cessation Medications and DC Order Prescriptions: New cyanocobalamin (vitamin B-12) 1,000 mcg/mL Solution 1,000 mcg IM WK Qty: 10 RF: 0 carbidopa-levodopa [Sinemet] 25-100 mg Tablet 1 tab PO TID Qty: 90 RF: 0 lansoprazole [Prevacid SoluTab] 15 mg Tablet,Disintegrat, Delay Rel 15 mg PO QAM Qty: 30 RF: 0 magnesium oxide 500 mg tablet 500 mg PO DAILY Qty: 30 RF: 0 Continued donepezil [Aricept] 5 mg tablet 10 mg PO QAM RF: 0 atorvastatin [Lipitor] 10 mg tablet 10 mg PO HS RF: 0 clopidogrel [Plavix] 75 mg tablet 75 mg PO QAM RF: 0 warfarin [Jantoven] 4 mg tablet 4 mg PO 4XWK RF: 0 levothyroxine [Synthroid] 50 mcg tablet 50 mcg PO DAILYBB RF: 0 metformin 1,000 mg tablet 1,000 mg PO BID RF: 0 warfarin [Jantoven] 5 mg tablet 2.5 mg PO 3XWK RF: 0 lisinopril [Zestril] 5 mg tablet 5 mg PO QAM RF: 0 nystatin [Nystop] 100,000 unit/gram powder 1 applic TOPICAL DAILY PRN (Reason: Rash) RF: 0 Multivitamin 50 Plus Tablet 1 tab PO QAM RF: 0 insulin lispro [Humalog KwikPen Insulin] 100 unit/mL insulin pen 0 unit SUBCUT AC RF: 0 duloxetine [Cymbalta] 20 mg capsule,delayed release(DR/EC) 20 mg PO HS RF: 0 Lantus Solostar U-100 Insulin 100 unit/mL (3 mL) insulin pen 13 unit SUBCUT HS RF: 0 Probiotic 100 billion cell Capsule 1 cap PO DAILYBB RF: 0 Changed metoprolol tartrate [Lopressor] 50 mg tablet 25 mg PO BID Qty: 0 RF: 0 Discontinued pantoprazole [Protonix] 40 mg tablet,delayed release (DR/EC) 40 mg PO DAILYBB RF: 0 Discharge Orders: Discharge Order (Routine); Ordered 11/16/20 Ordered By: Calin Robertson/Other Patient Handouts: A1C, High Blood Sugar (Hyperglycemia), Hypoglycemia (Low Blood Sugar), Managing Type 2 Diabetes Admission Data Admit Date/Time: 11/09/20 20:15 Attending Provider: Calin Bui Admit Provider: Brisa Kemp Primary Care Provider: Jamir Fowler Other Providers: Brisa Kemp ; Kristian Gray ; [facility] ; Emily Ruby Coding Diagnoses Declining functional status R53.81 Neurodegenerative disorder G31.9 Dysphagia R13.10 Dementia F03.90 Fecal impaction K56.41 UTI (urinary tract infection) N30.00 Hematuria presence: without hematuria Urinary tract infection type: acute cystitis Hypomagnesemia E83.42 Pancreatic cyst K86.2 VTE (venous thromboembolism) I82.90 Peripheral vascular disease I73.9 Depression F32.9 Hyperlipidemia E78.5 Hypertension I10 Diabetes E11.9 GERD (gastroesophageal reflux disease) K21.9 Hypothyroid E03.9 Hypokalemia E87.6 Hypophosphatemia E83.39 Anemia D64.9 B12 deficiency anemia D51.9
== END 2020-11-16 14:22 | disposition home or self-care (01) | DRG 640 ==
LOC: ED 15:02 → 3W 20:15 → SUATTDRO 20:15 → 3W 22:11